=== PATIENT | male | born 1940 | race Caucasian/White ===

== ENCOUNTER → 2017-10-04 | Outpatient (CLI) | payer MEDICARE ==
--- NOTE | 2017-10-05 21:04 | US ---
EXAMINATION TYPE: US kidneys/renal and bladder DATE OF EXAM: 10/04/2017 COMPARISON: NONE CLINICAL HISTORY: R31.9 Hematuria. EXAM MEASUREMENTS: Right Kidney: 10.5 x 5.6 x 5.1 cm Left Kidney: 10.8 x 4.2 x 4.3 cm Right Kidney: multiple kidney stones, largest two measuring 0.9 x 0.4 x 1.1cm, 2.) 0.9 x 0.8 x 0.7cm Left Kidney: cyst measuring 2.8 x 2.7 x 2.6cm, multiple stones noted, largest measuring 0.8 x 0.3 x 0 .5cm Bladder: wnl There is no evidence for hydronephrosis at this point in time. Bilateral kidneys show hyperechoic sha dowing foci suggestive of nephrolithiasis. No suspicious solid or cystic masses are identified. The re is 2.8 cm simple appearing cyst mid pole level left kidney marked by technologist. The urinary familia dder is anechoic. Bilateral ureteral jets are not seen. IMPRESSION: Suspect bilateral nephrolithiasis. No hydronephrosis is seen. Consider correlation/confirmation with abdominal KUB x-ray and/or renal stones CT study.
== END | disposition home or self-care (01) ==
LOC: RADUSWWP 15:20
PROVIDERS: ATTEND Internal Medicine Geriatric Medicine
DX: R31.9 Hematuria, unspecified (principal)
CPT/HCPCS: 76770

== ENCOUNTER → 2017-10-24 | Outpatient (CLI) | payer MEDICARE ==
--- NOTE | 2017-10-24 09:11 | XR ---
EXAMINATION TYPE: XR abdomen 1V DATE OF EXAM: 10/24/2017 HISTORY: Pain Comparison: None.Single KUB is submitted for interpretation. Findings: Right renal calculi: Multiple right-sided renal calculi noted with the largest calculus mid pole santiago uring 1.3 cm. Right ureteral calculi: None Visualized. Left renal calculi: Multiple calculi left kidney with the largest calculus mid pole measuring 1.2 cm . Left ureteral calculi: None Visualized. Pelvic calcifications: Multiple probable phleboliths are seen within the pelvic basin. Bowel gas pattern is unremarkable. No free air. No mass effects. IMPRESSION: 1. Bilateral nephrolithiasis.
== END | disposition home or self-care (01) ==
LOC: RADXRMAIN 08:23
PROVIDERS: ATTEND Urology
DX: N20.0 Calculus of kidney (principal)
CPT/HCPCS: 74018

== ENCOUNTER → 2019-03-16 | Outpatient (CLI) | payer MEDICARE ==
--- NOTE | 2019-03-16 17:17 | CT ---
EXAMINATION TYPE: CT abdomen pelvis wo con DATE OF EXAM: 03/16/2019 COMPARISON: None INDICATION: Hematuria, history of renal stones. DLP: 476.8 mGycm, Automated exposure control for dose reduction was used. CONTRAST: 0 mL of Isovue 300. Study performed without Oral Contrast TECHNIQUE: Axial images were obtained from above the diaphragm to the pubic rami in the axial plane a t 5 mm thick sections. Reconstructed images are reviewed on the computer in the coronal plane. FINDINGS: Limited CT sections are obtained the lung bases. There is some streak opacities in the dependent elham g bases. This could be related to some scarring from emphysematous change which is present. Some atel ectasis within the dependent lung bases could be considered.. Heart size is mildly prominent. CT ABDOMEN: Liver: Normal Spleen: Normal Pancreas: Multiple calcifications are within the pancreas suggesting chronic pancreatitis. Adrenal glands: The adrenal glands are normal. Gallbladder: There may be multiple gallstones in what may be the gallbladder along the margin of the right lobe liver. Kidneys: No masses are evident. No hydronephrosis is present. There is some distention of the right s uperior renal calyx which may be related to the renal calculi. There is a 2.6 cm posterior lateral m id left renal cyst measuring 9 Hounsfield units. Multiple nonobstructing renal stones are present bi laterally. This would include a 0.6 cm calcification at the inferior pole left kidney, mid to inferio r pole left renal 0.5 and 0.8 cm calcifications a 0.95 cm calcification in the mid anterior left kidn ey a 0.3 cm calcification superior pole right kidney is 0.5 cm calcification superior to mid right ki dney large staghorn calculus measuring estimated 1.6 x 1.2 cm with an adjacent 0.7 cm calcification. A cortical calcification measuring 0.6 cm posterior mid right kidney and within the inferior pole azul al 0.5 cm calcification right kidney. Aorta: Vascular calcification is within the aorta. Inferior vena cava: Normal. CT PELVIS: Loops of bowel within the abdomen and pelvis are normal. Fecal debris is through the colon. Multi ple diverticuli are within the sigmoid colon. No obstruction is identified. There is a left inguinal hernia extending into the scrotal sac containing multiple nonobstructed loops of bowel. A smaller rig ht inguinal hernia with mesenteric fat is present. Appendix: Not identified. Urinary bladder: Incompletely distended causing some limitation. Genitourinary structures: Prostate has slight prominence with calcification present. Osseous structures: No suspicious lytic or sclerotic lesions. IMPRESSIONS: 1. Mild fecal retention. 2. Diverticulosis without acute diverticulitis. 3. Suspected cholelithiasis. Correlate with surgical history. 4 multiple bilateral nonobstructing azul al stones. A larger staghorn calculus may be within the right kidney. 5. Chronic pancreatitis with pancreas calcifications. 6. Emphysematous changes and scarring at the lung bases. 7. Mild cardiomegaly
== END | disposition home or self-care (01) ==
LOC: RADCTMAIN 13:09
PROVIDERS: ATTEND Urology
DX: N20.0 Calculus of kidney (principal); K59.00 Constipation, unspecified; K57.90 Diverticulosis of intestine, part unspecified, without perforation or abscess without bleeding; K86.1 Other chronic pancreatitis; K86.89 Other specified diseases of pancreas; Z88.8 Allergy status to other drugs, medicaments and biological substances
CPT/HCPCS: 74176

== ENCOUNTER 2019-05-25 17:27 | Emergency (ER) | payer MEDICARE ==
[2019-05-25 17:42] VITALS: PULSE 71; RESP 18; TEMP 97.8
--- NOTE | 2019-05-25 18:40 | ED ---
General Adult HPI - General Chief complaint: Urogenital Stated complaint: URINE RETENTION Time Seen by Provider: 05/25/19 18:17 Source: patient Mode of arrival: wheelchair Limitations: no limitations - History of Present Illness Initial comments: Patient is 78-year-old male presenting to emergency Department with a chief complaint of can't pee. Patient reports he developed urinary retention about 3- 4 days ago and has not been able to completely empty his bladder. Patient does report dribbling. Patient reports for the past 2 days he has also developed left-sided testicular swelling with no tenderness. Patient does not report any tenderness in the suprapubic region. Patient also reports bladder fullness. Patient denies any erythema in the scrotum or penis. Patient denies any nausea or vomiting. Patient is scheduled to see Dr. Alva tomorrow. Patient denies any fevers or chills. Patient reports about a month ago he was diagnosed with kidney stone and was able to pass them. Otherwise no other complaints. Patient is currently on Flomax. Patient also reports bilateral lower extremity edema due to heart related issues. Patient reports the lower extremity edema has increased due to urinary retention - Related Data Home Medications Medication Instructions Recorded Confirmed Albuterol Sulfate [Proair Hfa] 1 - 2 puff INHALATION RT-Q6H PRN 05/05/19 05/25/19 Atenolol 25 mg PO BID 05/05/19 05/25/19 Atorvastatin [Lipitor] 10 mg PO Q48H 05/05/19 05/25/19 Budesonide/Formoterol Fumarate 2 puff INHALATION RT-BID 05/05/19 05/25/19 [Symbicort 160-4.5 Mcg Inhaler] Calcium Carbonate/Vitamin D3 1 tab PO DAILY 05/05/19 05/25/19 [Calcium 600-Vit D3 400 Caplet] Furosemide [Lasix] 40 mg PO DAILY 05/05/19 05/25/19 Melatonin 5 mg PO HS 05/05/19 05/25/19 Multivitamins, Thera [Multivitamin 1 tab PO DAILY 05/05/19 05/25/19 (formulary)] [place]-3 Fatty Acids/Fish Oil [Fish 1 cap PO DAILY 05/05/19 05/25/19 Oil 1,000 mg Softgel] Pilocarpine HCl 5 mg PO TID 05/05/19 05/25/19 Potassium Chloride [Klor-Con 10] 10 meq PO BID 05/05/19 05/25/19 Tamsulosin [Flomax] 0.4 mg PO DAILY 05/05/19 05/25/19 Ubidecarenone [Co Q-10] 100 mg PO DAILY 05/05/19 05/25/19 Zemaira 1 applic IV Q7D 05/05/19 05/25/19 Zolpidem [Ambien] 10 mg PO HS 05/05/19 05/25/19 cloNIDine HCL [Catapres] 0.3 mg PO BID 05/05/19 05/25/19 sitaGLIPtin PHOS/metFORMIN HCL 1 tab PO BID 05/05/19 05/25/19 [Janumet 50-500 mg Tablet] Spironolactone 25 mg PO DAILY 05/25/19 05/25/19 Allergies Allergy/AdvReac Type Severity Reaction Status Date / Time lisinopril AdvReac "picky Verified 05/25/19 19:13 throat"/Cough nifedipine [From Procardia] AdvReac Cough Verified 05/25/19 19:13 Review of Systems ROS Statement: Those systems with pertinent positive or pertinent negative responses have been documented in the HPI. ROS Other: All systems not noted in ROS Statement are negative. Past Medical History Past Medical History: COPD, Diabetes Mellitus, Hyperlipidemia, Hypertension Additional Past Medical History / Comment(s): lung disorder Alpha 1 antitrypsin deficiancy, uses O2 via NC prn @ 2L, recieves weekly infusions via port, states current kidney stones, leg edema History of Any Multi-Drug Resistant Organisms: MRSA Date of last positivie culture/infection: unsure 5-8 yrs ago MDRO Source:: umbilical incision Past Surgical History: Hernia Repair Additional Past Surgical History / Comment(s): umb. hernia repair, rt cataract, eyelid sx, port a cath rt side Past Anesthesia/Blood Transfusion Reactions: No Reported Reaction Past Psychological History: No Psychological Hx Reported Smoking Status: Former smoker Past Alcohol Use History: Occasional - Past Family History Mother Family Medical History: Cancer Additional Family Medical History / Comment(s): lung Sister(s) Family Medical History: Cancer Additional Family Medical History / Comment(s): 1 sister lung ca, one sister pneumonia General Exam Limitations: no limitations General appearance: alert, in no apparent distress Head exam: Present: atraumatic, normocephalic, normal inspection Eye exam: Present: normal appearance, PERRL, EOMI Pupils: Present: normal accommodation ENT exam: Present: normal exam, normal oropharynx, mucous membranes moist, normal external ear exam Neck exam: Present: normal inspection, full ROM Respiratory exam: Present: normal lung sounds bilaterally Cardiovascular Exam: Present: regular rate, normal rhythm, normal heart sounds GI/Abdominal exam: Present: soft, normal bowel sounds. Absent: distended, tenderness exam: Absent: normal inspection, testicular tenderness, urethral discharge, scrotal swelling (Left-sided testicular swelling), other (No penile discharge) Extremities exam: Present: full ROM. Absent: normal inspection (Bilateral lower extremity edema) Back exam: Present: normal inspection, full ROM Neurological exam: Present: alert, oriented X3 Psychiatric exam: Present: normal affect, normal mood Skin exam: Present: warm, intact, normal color Course Vital Signs 05/25/19 05/25/19 05/25/19 17:39 19:58 21:07 Temperature 97.8 F 97.8 F Pulse Rate 71 71 71 Respiratory 18 18 18 Rate Blood Pressure 147/78 160/90 160/90 O2 Sat by Pulse 98 92 L 92 L Oximetry Medical Decision Making - Medical Decision Making Patient is a 78-year-old male with history of inguinal hernias presenting to emergency Department with a chief complaint of can't urinate. Patient reports he has developed scrotal swelling approximately 2 weeks ago and he is going to be evaluated by a surgeon. Patient reports over the past 3 days he has developed urinary retention. Patient reports dribbling. Patient denies any dysuria or pulse symptoms. Patient does report suprapubic tenderness and bladder fullness. Bladder scan shows 600 mL of fluid. Morgan catheter was placed and was able to drain all the fluid. Patient reports a lot of relief. Scrotal ultrasound is indicative of 2.5 cm epidermal cyst. Right testicular hydrocele also noted. Patient reports he has an appointment with a urologist in the morning. I suspect the urinary retention to be a result of the indirect inguinal hernia. Strict return parameters were thoroughly discussed the patient was understanding and agreeable. Case discussed with physician. - Lab Data Result diagrams: 05/25/19 18:50 05/25/19 18:50 Lab Results 05/25/19 05/25/19 05/25/19 Range/Units 18:50 18:50 19:00 WBC 9.5 (3.8-10.6) k/uL RBC 5.50 (4.30-5.90) m/uL Hgb 16.5 (13.0-17.5) gm/dL Hct 50.0 (39.0-53.0) % MCV 90.8 (80.0-100.0) fL MCH 30.1 (25.0-35.0) pg MCHC 33.1 (31.0-37.0) g/dL RDW 13.1 (11.5-15.5) % Plt Count 186 (150-450) k/uL Neutrophils % 83 % Lymphocytes % 8 % Monocytes % 5 % Eosinophils % 1 % Basophils % 1 % Neutrophils # 7.9 H (1.3-7.7) k/uL Lymphocytes # 0.8 L (1.0-4.8) k/uL Monocytes # 0.5 (0-1.0) k/uL Eosinophils # 0.1 (0-0.7) k/uL Basophils # 0.1 (0-0.2) k/uL Sodium 139 (137-145) mmol/L Potassium 4.9 (3.5-5.1) mmol/L Chloride 101 (98-107) mmol/L Carbon Dioxide 26 (22-30) mmol/L Anion Gap 12 mmol/L BUN 24 H (9-20) mg/dL Creatinine 1.07 (0.66-1.25) mg/dL Est GFR (CKD-EPI)AfAm 78 (>60 ml/min/1.73 sqM) Est GFR (CKD-EPI)NonAf 68 (>60 ml/min/1.73 sqM) Glucose 127 H (74-99) mg/dL Calcium 9.7 (8.4-10.2) mg/dL Total Bilirubin 1.0 (0.2-1.3) mg/dL AST 45 (17-59) U/L ALT 30 (21-72) U/L Alkaline Phosphatase 65 (38-126) U/L NT-Pro-B Natriuret Pep 143 pg/mL Total Protein 8.1 (6.3-8.2) g/dL Albumin 4.4 (3.5-5.0) g/dL Urine Color Urine Appearance (Clear) Urine pH (5.0-8.0) Ur Specific [place] (1.001-1.035) Urine Protein (Negative) Urine Glucose (UA) (Negative) Urine Ketones (Negative) Urine Blood (Negative) Urine Nitrite (Negative) Urine Bilirubin (Negative) Urine Urobilinogen (<2.0) mg/dL Ur Leukocyte Esterase (Negative) Urine RBC (0-5) /hpf Urine WBC (0-5) /hpf Ur Squamous Epith Cells (0-4) /hpf Hyaline Casts (0-2) /lpf Urine Mucus (None) /hpf 05/25/19 Range/Units 20:10 WBC (3.8-10.6) k/uL RBC (4.30-5.90) m/uL Hgb (13.0-17.5) gm/dL Hct (39.0-53.0) % MCV (80.0-100.0) fL MCH (25.0-35.0) pg MCHC (31.0-37.0) g/dL RDW (11.5-15.5) % Plt Count (150-450) k/uL Neutrophils % % Lymphocytes % % Monocytes % % Eosinophils % % Basophils % % Neutrophils # (1.3-7.7) k/uL Lymphocytes # (1.0-4.8) k/uL Monocytes # (0-1.0) k/uL Eosinophils # (0-0.7) k/uL Basophils # (0-0.2) k/uL Sodium (137-145) mmol/L Potassium (3.5-5.1) mmol/L Chloride (98-107) mmol/L Carbon Dioxide (22-30) mmol/L Anion Gap mmol/L BUN (9-20) mg/dL Creatinine (0.66-1.25) mg/dL Est GFR (CKD-EPI)AfAm (>60 ml/min/1.73 sqM) Est GFR (CKD-EPI)NonAf (>60 ml/min/1.73 sqM) Glucose (74-99) mg/dL Calcium (8.4-10.2) mg/dL Total Bilirubin (0.2-1.3) mg/dL AST (17-59) U/L ALT (21-72) U/L Alkaline Phosphatase (38-126) U/L NT-Pro-B Natriuret Pep pg/mL Total Protein (6.3-8.2) g/dL Albumin (3.5-5.0) g/dL Urine Color Yellow Urine Appearance Clear (Clear) Urine pH 6.0 (5.0-8.0) Ur Specific [place] 1.010 (1.001-1.035) Urine Protein Negative (Negative) Urine Glucose (UA) Negative (Negative) Urine Ketones Negative (Negative) Urine Blood Negative (Negative) Urine Nitrite Negative (Negative) Urine Bilirubin Negative (Negative) Urine Urobilinogen <2.0 (<2.0) mg/dL Ur Leukocyte Esterase Small H (Negative) Urine RBC 4 (0-5) /hpf Urine WBC 8 H (0-5) /hpf Ur Squamous Epith Cells <1 (0-4) /hpf Hyaline Casts 6 H (0-2) /lpf Urine Mucus Rare H (None) /hpf Disposition Clinical Impression: Urinary retention, Hernia Disposition: HOME SELF-CARE Condition: Stable Instructions (If sedation given, give patient instructions): Morgan Catheter Placement and Care (ED) Additional Instructions: Please follow up with Dr. Guzman in the morning. Please follow proper care for a Morgan catheter. Please return to emergency department if symptoms worsen. Is patient prescribed a controlled substance at d/c from ED?: No Referrals: Juancarlos Ledesma MD [Primary Care Provider] - 1-2 days Time of Disposition: 20:38
[2019-05-25 19:00] LABS: Basophils # (A) 0.1 k/uL (0-0.2); Basophils % (A) 1 %; Eosinophils # (A) 0.1 k/uL (0-0.7); Eosinophils % (A) 1 %; HGB 16.5 gm/dL (13.0-17.5); Lymphocytes # (A) 0.8 k/uL (1.0-4.8); Lymphocytes % (A) 8 %; MCH 30.1 pg (25.0-35.0); MCHC 33.1 g/dL (31.0-37.0); MCV 90.8 fL (80.0-100.0); Mean Platelet Volume 6.7; Monocytes # (A) 0.5 k/uL (0-1.0); Monocytes % (A) 5 %; Neutrophils # (A) 7.9 k/uL (1.3-7.7); Neutrophils % (A) 83 %; Platelet Count 186 k/uL (150-450); RDW 13.1 % (11.5-15.5); WBC 9.5 k/uL (3.8-10.6)
[2019-05-25 19:07] LABS: Albumin 4.4 g/dL (3.5-5.0); Calcium 9.7 mg/dL (8.4-10.2); Potassium 4.9 mmol/L (3.5-5.1); Total Protein 8.1 g/dL (6.3-8.2)
--- NOTE | 2019-05-25 19:55 | US ---
EXAMINATION TYPE: US scrotum with doppler. Grayscale and color Doppler Duplex imaging performed of t demetrius scrotum. DATE OF EXAM: 05/25/2019 COMPARISON: NONE CLINICAL HISTORY: Testicular swelling. Left testicular swelling x 1 week. No injury. Hx hernia. EXAM MEASUREMENTS: TESTICLES: Right Testicle: 4.5 x 2.7 x 3.2 cm Left Testicle: 4.6 x 3.8 x 3.1 cm EPIDIDYMIS HEAD: Right Epididymis: 3.1 x 2.5 x 2.0 cm Left Epididymis: Not well seen. 1.3 x 1.8 x 0.5 cm Mixed, mostly anechoic area seen right epididymis measurin.1 x 2.6 x 2.0 cm. Hypoechoic area seen left epididymis measurin.5 x 0.7 x 0.2 cm. Doppler performed to assess for testicular vascularity; good bilateral color flow and waveforms are s een. There is no evidence of testicular torsion. Presence of hydroceles: Small anechoic area seen adjacent to right testicle measurin.2 x 0.8 x 0 .5 cm. Presence of varicoceles: not seen Scrotum appears very swollen. Movement seen in areas surrounding testicles. Patient has a history of a hernia. IMPRESSION: 2.5 cm right-sided epididymal cyst. No evidence of testicular mass or torsion. Small righ t-sided hydrocele.
[2019-05-25 20:02] VITALS: BP 160/90
[2019-05-25 20:17] LABS: Appearance,Urine Clear (Clear); Bilirubin,Urine Negative (Negative); Blood,Urine Negative (Negative); Color,Urine Yellow; Glucose,Urine (UA) Negative (Negative); Hyaline Casts,Urine 6 /lpf (0-2); Ketones,Urine Negative (Negative); Leukocyte Esterase,Urine Small (Negative); Mucus,Urine Rare /hpf; Nitrite,Urine Negative (Negative); Protein,Urine Negative (Negative); RBC,Urine 4 /hpf (0-5); Squamous Epithelial Cell,Urine <1 /hpf (0-4); Urobilinogen,Urine <2.0 mg/dL (<2.0)
== END 2019-05-25 21:09 | disposition home or self-care (01) ==
LOC: EC 17:27
DX: K40.90 Unilateral inguinal hernia, without obstruction or gangrene, not specified as recurrent (principal); L72.0 Epidermal cyst; N43.3 Hydrocele, unspecified; J44.9 Chronic obstructive pulmonary disease, unspecified; E11.9 Type 2 diabetes mellitus without complications; E78.5 Hyperlipidemia, unspecified; I10 Essential (primary) hypertension; Z87.891 Personal history of nicotine dependence; Z79.899 Other long term (current) drug therapy; Z88.8 Allergy status to other drugs, medicaments and biological substances; Z86.14 Personal history of Methicillin resistant Staphylococcus aureus infection; Z98.890 Other specified postprocedural states; Z98.41 Cataract extraction status, right eye; Z99.81 Dependence on supplemental oxygen
CPT/HCPCS: 36415; 51702; 51798; 76870; 80053; 81001; 83880; 85025; 93975; 99284

== ENCOUNTER → 2019-05-27 | Outpatient (CLI) | payer MEDICARE | END | disposition home or self-care (01) | LOC: CPPFTMAIN 10:37 | PROVIDERS: ATTEND Internal Medicine Critical Care Medicine | DX: J44.9 Chronic obstructive pulmonary disease, unspecified (principal); J98.8 Other specified respiratory disorders | CPT/HCPCS: 94060; 94726; 94729 ==

== ENCOUNTER 2019-07-01 07:53 | Day surgery (SDC) | payer MEDICARE ==
[~2019-07-01 07:53] MED LIST: DEXAMETHASONE SOD PHOSPHATE 10 MG/ML 1 ML VIAL IV ONE; HEPARIN SODIUM,PORCINE 5,000 UNIT/ML 1 ML VIAL SQ ONE; HYDROmorphone 0.5 MG/0.5 ML SYRINGE IVP PRN; LIDOCAINE 1% 20 ML VIAL (10MG/ML) FOR IV START INTRADERMA PRN; MIDAZOLAM 2 MG/2 ML VIAL IV PRN; ONDANSETRON 4 MG/2 ML VIAL IVP ONE; SCOPOLAMINE 1.5MG/72HR PATCH TRANSDERM ONE
--- NOTE | 2019-07-01 09:11 | P.GSHP ---
History of Present Illness H&P Date: 07/01/19 Chief Complaint: Left inguinal hernia This a 78-year-old male with a large incarcerated left internal hernia. Patient rents today for open repair. Patient will see spinal anesthetic due to his comorbidities. Past Medical History Past Medical History: COPD, Diabetes Mellitus, Hyperlipidemia, Hypertension Additional Past Medical History / Comment(s): EC VISIT ON 05/25/19 FOR URINARY RETENTION, HAS HAD URINARY CATHETER SINCE. Lung disorder: Alpha 1 antitrypsin deficiancy, uses O2 via NC prn @ 2L, recieves weekly infusions via port BY VISITING NURSE. Leg edema. HX: RENAL STONES History of Any Multi-Drug Resistant Organisms: MRSA Date of last positivie culture/infection: unsure 5-8 yrs ago MDRO Source:: umbilical incision Past Surgical History: Hernia Repair Additional Past Surgical History / Comment(s): BILATERAL CATARACTS. Umb. hernia repair. Eyelid sx. PORT-A-CATH. Past Anesthesia/Blood Transfusion Reactions: No Reported Reaction Additional Past Anesthesia/Blood Transfusion Reaction / Comment(s): NO GENERAL ANESTHESIA DUE TO LUNG DISORDER. Past Psychological History: No Psychological Hx Reported Smoking Status: Former smoker Past Alcohol Use History: Occasional Additional Past Alcohol Use History / Comment(s): smoked for a few years in his 20's, 1 pack per week Past Drug Use History: None Reported - Past Family History Mother Family Medical History: Cancer Additional Family Medical History / Comment(s): lung Sister(s) Family Medical History: Cancer Additional Family Medical History / Comment(s): 1 sister lung ca, one sister pneumonia Medications and Allergies Home Medications Medication Instructions Recorded Confirmed Type Albuterol Sulfate [Proair Hfa] 1 - 2 puff INHALATION RT-Q6H PRN 05/05/19 07/01/19 History Atenolol 25 mg PO BID 05/05/19 07/01/19 History Atorvastatin [Lipitor] 10 mg PO Q48H 05/05/19 07/01/19 History Budesonide/Formoterol Fumarate 2 puff INHALATION RT-BID 05/05/19 07/01/19 History [Symbicort 160-4.5 Mcg Inhaler] Calcium Carbonate/Vitamin D3 1 tab PO DAILY 05/05/19 07/01/19 History [Calcium 600-Vit D3 400 Caplet] Furosemide [Lasix] 40 mg PO DAILY 05/05/19 07/01/19 History Melatonin 5 mg PO HS 05/05/19 07/01/19 History Multivitamins, Thera [Multivitamin 1 tab PO DAILY 05/05/19 07/01/19 History (formulary)] [place]-3 Fatty Acids/Fish Oil [Fish 1 cap PO DAILY 05/05/19 07/01/19 History Oil 1,000 mg Softgel] Pilocarpine HCl 5 mg PO TID 05/05/19 07/01/19 History Potassium Chloride [Klor-Con 10] 10 meq PO BID 05/05/19 07/01/19 History Tamsulosin [Flomax] 0.4 mg PO BID 05/05/19 07/01/19 History Ubidecarenone [Co Q-10] 100 mg PO DAILY 05/05/19 07/01/19 History Zemaira 1 applic IV TU 05/05/19 07/01/19 History Zolpidem [Ambien] 10 mg PO HS 05/05/19 07/01/19 History cloNIDine HCL [Catapres] 0.3 mg PO BID 05/05/19 07/01/19 History sitaGLIPtin PHOS/metFORMIN HCL 1 tab PO BID 05/05/19 07/01/19 History [Janumet 50-500 mg Tablet] Spironolactone 5 mg PO TID PRN 05/25/19 07/01/19 History Furosemide [Lasix] 20 mg PO 1500 06/29/19 07/01/19 History Allergies Allergy/AdvReac Type Severity Reaction Status Date / Time lisinopril AdvReac "picky Verified 07/01/19 08:35 throat"/Cough nifedipine [From Procardia] AdvReac Cough Verified 07/01/19 08:35 Surgical - Exam Vital Signs Temp Pulse Resp BP Pulse Ox 97.6 F 73 20 138/91 90 L 07/01/19 08:31 07/01/19 08:31 07/01/19 08:31 07/01/19 08:31 07/01/19 08:31 - General well developed, well nourished, no distress - Eyes PERRL - ENT normal pinna - Neck no masses - Respiratory normal expansion - Cardiovascular Rhythm: regular - Abdomen Abdomen: soft, non tender Hernia: inguinal (Large incarcerated left inguinal hernia extending in the scrotum) Assessment and Plan Assessment: Large left incarcerated inguinal hernia. We'll perform open repair.
[2019-07-01 09:17] LABS: Glucose,Whole Blood 141 mg/dL (75-99)
[2019-07-01] MEDS: LACTATED RINGERS 1,000 ML IV SCH (09:21)
[2019-07-01] MEDS ORDERED: MIDAZOLAM 2 MG/2 ML VIAL ONE (09:22)
[2019-07-01] MEDS ORDERED: fentaNYL (PF) 50 MCG/ML 2 ML AMP ONE (09:22)
[2019-07-01] MEDS ORDERED: BUPIVACAINE (PF) 0.25% 30 ML VIAL SQ ONE (10:25)
[2019-07-01] MEDS ORDERED: LACTATED RINGERS 1,000 ML IV ONE (10:40)
[2019-07-01] MEDS ORDERED: ONDANSETRON 4 MG/2 ML VIAL IVP PRN (10:40)
[2019-07-01] MEDS ORDERED: ACETAMINOPHEN TAB 325 MG TAB PO PRN (10:40)
[2019-07-01] MEDS ORDERED: HYDROmorphone 0.5 MG/0.5 ML SYRINGE IVP PRN (10:40)
[2019-07-01] MEDS ORDERED: NALOXONE 0.4 MG/ML 1 ML VIAL IV PRN (10:40)
--- NOTE | 2019-07-01 10:40 | P.OP ---
Date of Procedure: 07/01/19 Preoperative Diagnosis: Incarcerated left inguinal hernia Postoperative Diagnosis: Incarcerated left femoral hernia Procedure(s) Performed: (Repair of left inguinal hernia Left orchiectomy Anesthesia: JAIRO Surgeon: Efrem Francis Estimated Blood Loss (ml): 5 Pathology: other (Left testicle cord and hernia sac) Condition: stable Disposition: PACU Description of Procedure: The patient's placed on the operative table in supine position. He received spinal anesthesia and sedation. His groin was prepped and draped usual sterile fashion. A standard left inguinal hernia incision was made in the left groin and then using the cautery the subcutaneous tissues were divided. The fascia external oblique was exposed. The patient had a very large left inguinal hernia. There is incarcerated bowel or omentum within the hernia sac. The testicle was brought up in the wound. The hernia sac was dissected off of the cord structures. The bowel omentum was placed back in to the pleural cavity. Due to the large size of the hernia is high perform a orchiectomy. The cord structures and hernia sac within clamped with a Dinorah clamp and the hernia sac and cord were cut using metastases months scissors. The cord suture ligated with 0 Vicryl ties the hernia sac was then oversewn with 0 Vicryl suture. The hernia defect was then closed using 0 Ethibond suture. WAS USED TO BRING THE TRANSVERSALIS DOWN TO CHERRI'S LIGAMENT. THE FASCIA EXTERNAL OBLIQUE WAS CLOSED with 0 Vicryl. Frank's fascia closed with 2-0 Vicryl. Skin was closed interrupted 3-0 Monocryl suture. Dermabond was applied. Patient top she will was sent to recovery in stable condition.
[2019-07-01] MEDS ORDERED: IPRATROPIUM-ALBUTEROL 3 ML NEB INHALATION PRN (14:15)
--- NOTE | 2019-07-01 15:36 | P.CNPUL ---
History of Present Illness Consult date: 07/01/19 Reason for consult: COPD Chief complaint: status post left inguinal hernia repair, known history of COPD History of present illness: this is a 78-year-old white male with history of COPD,known to have history of alpha-1 antitrypsin deficiency, O2 dependent, on Zemaira replacement therapy for his underlying alpha-1 antitrypsin deficiency.his diagnosis of alpha-1 antitrypsin was made in 2016, and he normally sees Dr. Abdul on a regular basis.maintained on bronchodilators in the form of pro-air, Spiriva, and Symbicort. Patient is compliant with his medications, he had recent evaluation in our office, and he was cleared for surgical repair of incarcerated left inguinal hernia. Patient had his surgery . Performed uneventfully, he was found to have incarcerated left inguinal hernia. Postoperatively patient was admitted to the regular medical floor, and we were asked to see him on consultation for his underlying COPD. Patient is presently asymptomatic, back on his oxygen, back on his bronchodilators and he seems to be relatively asymptomatic from the pulmonary perspective. Patient is known to have history of other medical problems including chronic hypoxic respiratory failure, nephrolithiasis, diabetes, hypercholesterolemia,and his surgical clearance was done by Dr. Zhang recently in the office. Review of Systems Constitutional-Negative Eyes-Negative ENMT-Negative Cardiovascular-Negative Respiratory-shortness of breath on exertion. Gastrointestinal-Negative Genitourinary-Negative Musculoskeletal-Negative Skin-Negative Neurologic-Negative Endocrine-Negative Psychiatric-Negative Hematologic/Lymphatic-Negative Allergic/Immumologic-Negative Past Medical History Past Medical History: COPD, Diabetes Mellitus, Hyperlipidemia, Hypertension Additional Past Medical History / Comment(s): EC VISIT ON 05/25/19 FOR URINARY RETENTION, HAS HAD URINARY CATHETER SINCE. Lung disorder: Alpha 1 antitrypsin deficiancy, uses O2 via NC prn @ 2L, recieves weekly infusions via port BY VISITING NURSE. Leg edema. HX: RENAL STONES History of Any Multi-Drug Resistant Organisms: MRSA Date of last positivie culture/infection: unsure 5-8 yrs ago MDRO Source:: umbilical incision Past Surgical History: Hernia Repair Additional Past Surgical History / Comment(s): BILATERAL CATARACTS. Umb. hernia repair. Eyelid sx. PORT-A-CATH. Past Anesthesia/Blood Transfusion Reactions: No Reported Reaction Additional Past Anesthesia/Blood Transfusion Reaction / Comment(s): NO GENERAL ANESTHESIA DUE TO LUNG DISORDER. Past Psychological History: No Psychological Hx Reported Smoking Status: Former smoker Past Alcohol Use History: Occasional Additional Past Alcohol Use History / Comment(s): smoked for a few years in his 20's, 1 pack per week Past Drug Use History: None Reported - Past Family History Mother Family Medical History: Cancer Additional Family Medical History / Comment(s): lung Sister(s) Family Medical History: Cancer Additional Family Medical History / Comment(s): 1 sister lung ca, one sister pneumonia Medications and Allergies Home Medications Medication Instructions Recorded Confirmed Type Albuterol Sulfate [Proair Hfa] 1 - 2 puff INHALATION RT-Q6H PRN 05/05/19 07/01/19 History Atenolol 25 mg PO BID 05/05/19 07/01/19 History Atorvastatin [Lipitor] 10 mg PO Q48H 05/05/19 07/01/19 History Budesonide/Formoterol Fumarate 2 puff INHALATION RT-BID 05/05/19 07/01/19 History [Symbicort 160-4.5 Mcg Inhaler] Calcium Carbonate/Vitamin D3 1 tab PO DAILY 05/05/19 07/01/19 History [Calcium 600-Vit D3 400 Caplet] Furosemide [Lasix] 40 mg PO DAILY 05/05/19 07/01/19 History Melatonin 5 mg PO HS 05/05/19 07/01/19 History Multivitamins, Thera [Multivitamin 1 tab PO DAILY 05/05/19 07/01/19 History (formulary)] Pala-3 Fatty Acids/Fish Oil [Fish 1 cap PO DAILY 05/05/19 07/01/19 History Oil 1,000 mg Softgel] Pilocarpine HCl 5 mg PO TID 05/05/19 07/01/19 History Potassium Chloride [Klor-Con 10] 10 meq PO BID 05/05/19 07/01/19 History Tamsulosin [Flomax] 0.4 mg PO BID 05/05/19 07/01/19 History Ubidecarenone [Co Q-10] 100 mg PO DAILY 05/05/19 07/01/19 History Zemaira 1 applic IV TU 05/05/19 07/01/19 History Zolpidem [Ambien] 10 mg PO HS 05/05/19 07/01/19 History cloNIDine HCL [Catapres] 0.3 mg PO BID 05/05/19 07/01/19 History sitaGLIPtin PHOS/metFORMIN HCL 1 tab PO BID 05/05/19 07/01/19 History [Janumet 50-500 mg Tablet] Spironolactone 5 mg PO TID PRN 05/25/19 07/01/19 History Furosemide [Lasix] 20 mg PO 1500 06/29/19 07/01/19 History Allergies Allergy/AdvReac Type Severity Reaction Status Date / Time lisinopril AdvReac "picky Verified 07/01/19 08:35 throat"/Cough nifedipine [From Procardia] AdvReac Cough Verified 07/01/19 08:35 Physical Exam Vitals: Vital Signs Temp Pulse Pulse Resp BP BP Pulse Ox 07/01/19 14:56 97.9 F 61 18 117/73 91 L 07/01/19 13:30 62 16 126/68 96 07/01/19 13:00 66 16 125/67 96 07/01/19 12:30 61 16 136/74 97 07/01/19 12:00 58 L 16 138/74 96 07/01/19 11:30 52 L 16 130/59 97 07/01/19 11:17 55 L 16 112/62 97 07/01/19 10:57 58 L 16 109/62 94 L 07/01/19 10:42 96.8 F L 57 L 16 102/59 97 07/01/19 08:31 97.6 F 73 20 138/91 90 L Intake and Output 07/01/19 07/01/19 07/01/19 06:59 14:59 22:59 Intake Total 750 Output Total 205 Balance 545 Intake: IV 750 Output: Urine 200 Estimated Blood Loss 5 Other: Weight 72.575 kg Physical Exam: Revealed a 78-year-old white male, on 2 L nasal cannula, in no distress. Head: Atraumatic, normocephalic. HEENT:[Neck is supple.] [No neck masses.] [No thyromegaly.] [No JVD.] Chest: symmetrical chest expansion, decreased breath sounds at the bases. No rhonchi and no wheezes.] Cardiac Exam: [Normal S1 and S2, no S3 gallop, no murmur.] Abdomen: [Soft, nontender, no megaly, no rebound, no guarding, normal bowel sounds.]left inguinal surgical scar is noted clean and dry. Extremities: [No clubbing, trace of bipedal edema no cyanosis.] Neurological Exam: [No focal neurologic deficit.]alert and oriented 3. Psychiatric: Normal mood, affect and normal mental status examination. Lymphatics: No lymphadenopathy. Skin: No rashes. Results - Laboratory Findings Abnormal lab findings: Abnormal Labs 07/01/19 09:16 POC Glucose (mg/dL) 141 H Assessment and Plan Assessment: impression: 1 status post left inguinal hernia repair postoperative day #0. 2 history of severe COPD/alpha-1 antitrypsin deficiency, presently stable and the patient was placed back on his usual bronchodilators. 3 history of chronic hypoxic respiratory failure secondary to COPD and alpha-1 antitrypsin deficiency. 4 benign essential hypertension 5 history of nephrolithiasis 6 type 2 diabetes 7 hypercholesterolemia. Recommendation: Continue incentive spirometry Continue bronchodilators as ordered Early ambulation Resume home meds we'll continue to follow. Bronchodilators orders placed on the chart. Time with Patient: Greater than 30
--- NOTE | 2019-07-01 16:08 | P.CONS ---
History of Present Illness - Reason for Consult Consult date: 07/01/19 Medical management Requesting physician: Efrem Francis - Chief Complaint Incarcerated left inguinal hernia repair. - History of Present Illness This is 78 her old male one of Dr. Ledesma with a previous medical history significant for chronic respiratory failure due to COPD as well as alpha 1 and Tetracyn deficiency currently on replacement therapy in the form of Zemeira has been following with Dr. Abdul and regular basis and he was cleared prior to the surgical intervention, hypertension and hypertensive cardio vascular disease, hyperlipidemia, diabetes mellitus type 2, nephrolithiasis, patient underwent left incarcerated inguinal hernia without any complications and I was asked to see the patient for medical management. Review of Systems Constitutional: Denies anorexia, Denies chills, Denies lethargy, Denies malaise, Denies weakness Eyes: denies blurred vision, denies bulging eye, denies decreased vision, denies diplopia Ears: deny: decreased hearing Ears, nose, mouth and throat: Denies dysphagia, Denies neck lump Cardiovascular: Reports decreased exercise tolerance, Reports dyspnea on exertion, Denies chest pain, Denies lightheadedness, Denies rapid heart beat, Denies shortness of breath, Denies syncope Respiratory: Reports cough, Reports home oxygen, Denies congestion, Denies respiratory infections, Denies sleep apnea, Denies snoring, Denies wheezing Gastrointestinal: Denies abdominal pain, Denies bloating, Denies BRBPR, Denies early satiety, Denies heartburn, Denies melena, Denies nausea, Denies vomiting Genitourinary: Denies dysuria, Denies nocturia Musculoskeletal: Denies myalgias Musculoskeletal: absent: ankle pain, ankle stiffness, ankle swelling, elbow pain, elbow stiffness, elbow swelling, foot pain, foot stiffness, foot swelling, hand pain, hand stiffness, hand swelling, hip pain, hip stiffness, hip swelling, knee pain, knee stiffness, knee swelling, shoulder pain, shoulder stiffness, shoulder swelling, wrist pain, wrist stiffness, wrist swelling Integumentary: Denies pruritus, Denies rash Neurological: Denies numbness, Denies weakness Psychiatric: Denies anxiety, Denies depression Endocrine: Denies fatigue, Denies weight change Past Medical History Past Medical History: COPD, Diabetes Mellitus, Hyperlipidemia, Hypertension Additional Past Medical History / Comment(s): EC VISIT ON 05/25/19 FOR URINARY RETENTION, HAS HAD URINARY CATHETER SINCE. Lung disorder: Alpha 1 antitrypsin deficiancy, uses O2 via NC prn @ 2L, recieves weekly infusions via port BY VISITING NURSE. Leg edema. HX: RENAL STONES History of Any Multi-Drug Resistant Organisms: MRSA Year Discovered:: unsure 5-8 yrs ago MDRO Source:: umbilical incision Past Surgical History: Hernia Repair Additional Past Surgical History / Comment(s): BILATERAL CATARACTS. Umb. hernia repair. Eyelid sx. PORT-A-CATH. Past Anesthesia/Blood Transfusion Reactions: No Reported Reaction Additional Past Anesthesia/Blood Transfusion Reaction / Comm: NO GENERAL ANESTHESIA DUE TO LUNG DISORDER. Past Psychological History: No Psychological Hx Reported Smoking Status: Former smoker Past Alcohol Use History: Occasional Additional Past Alcohol Use History / Comment(s): smoked for a few years in his 20's, 1 pack per week Past Drug Use History: None Reported - Past Family History Mother Family Medical History: Cancer (Mother at age of 65 from lung cancer.) Additional Family Medical History / Comment(s): lung Sister(s) Family Medical History: Cancer (Patient had 2 sisters an older sister who had lung cancer and possible alpha-1 antitrypsin deficiency the other one from pneumonia.) Additional Family Medical History / Comment(s): 1 sister lung ca, one sister pneumonia Father Family Medical History: No Reported History (Father at age of 85 from old age.) Additional Family Medical History / Comment(s): Patient has no kids. Only step kids Medications and Allergies Home Medications Medication Instructions Recorded Confirmed Type Albuterol Sulfate [Proair Hfa] 1 - 2 puff INHALATION RT-Q6H PRN 05/05/19 07/01/19 History Atenolol 25 mg PO BID 05/05/19 07/01/19 History Atorvastatin [Lipitor] 10 mg PO Q48H 05/05/19 07/01/19 History Budesonide/Formoterol Fumarate 2 puff INHALATION RT-BID 05/05/19 07/01/19 History [Symbicort 160-4.5 Mcg Inhaler] Calcium Carbonate/Vitamin D3 1 tab PO DAILY 05/05/19 07/01/19 History [Calcium 600-Vit D3 400 Caplet] Furosemide [Lasix] 40 mg PO DAILY 05/05/19 07/01/19 History Melatonin 5 mg PO HS 05/05/19 07/01/19 History Multivitamins, Thera [Multivitamin 1 tab PO DAILY 05/05/19 07/01/19 History (formulary)] Metaline-3 Fatty Acids/Fish Oil [Fish 1 cap PO DAILY 05/05/19 07/01/19 History Oil 1,000 mg Softgel] Pilocarpine HCl 5 mg PO TID 05/05/19 07/01/19 History Potassium Chloride [Klor-Con 10] 10 meq PO BID 05/05/19 07/01/19 History Tamsulosin [Flomax] 0.4 mg PO BID 05/05/19 07/01/19 History Ubidecarenone [Co Q-10] 100 mg PO DAILY 05/05/19 07/01/19 History Zemaira 1 applic IV TU 05/05/19 07/01/19 History Zolpidem [Ambien] 10 mg PO HS 05/05/19 07/01/19 History cloNIDine HCL [Catapres] 0.3 mg PO BID 05/05/19 07/01/19 History sitaGLIPtin PHOS/metFORMIN HCL 1 tab PO BID 05/05/19 07/01/19 History [Janumet 50-500 mg Tablet] Spironolactone 5 mg PO TID PRN 05/25/19 07/01/19 History Furosemide [Lasix] 20 mg PO 1500 06/29/19 07/01/19 History Allergies Allergy/AdvReac Type Severity Reaction Status Date / Time lisinopril AdvReac "picky Verified 07/01/19 08:35 throat"/Cough nifedipine [From Procardia] AdvReac Cough Verified 07/01/19 08:35 Physical Exam Vitals: Vital Signs Temp Pulse Pulse Resp BP BP Pulse Ox 07/01/19 14:56 97.9 F 61 18 117/73 91 L 07/01/19 13:30 62 16 126/68 96 07/01/19 13:00 66 16 125/67 96 07/01/19 12:30 61 16 136/74 97 07/01/19 12:00 58 L 16 138/74 96 07/01/19 11:30 52 L 16 130/59 97 07/01/19 11:17 55 L 16 112/62 97 07/01/19 10:57 58 L 16 109/62 94 L 07/01/19 10:42 96.8 F L 57 L 16 102/59 97 07/01/19 08:31 97.6 F 73 20 138/91 90 L Intake and Output 07/01/19 07/01/19 07/01/19 06:59 14:59 22:59 Intake Total 750 Output Total 205 Balance 545 Intake: IV 750 Output: Urine 200 Estimated Blood Loss 5 Other: Weight 72.575 kg - Constitutional General appearance: average body habitus, no acute distress - EENT Eyes: anicteric sclerae, EOMI, PERRLA, no ptosis, no scleral icterus, normal appearance ENT: hearing grossly normal, NA/AT, normal oropharynx, no thrush Ears: bilateral: normal - Neck Neck: no lymphadenopathy, normal ROM, no rigidity, no stridor, no thyromegaly Carotids: bilateral: upstroke normal Thyroid: bilateral: normal size - Respiratory Respiratory: bilateral: diminished, negative: dullness, rales, rhonchi, wheezing, prolonged expiration - Cardiovascular Rhythm: regular Heart sounds: normal: S1, S2 Abnormal Heart Sounds: systolic murmur, no S3 Gallop, no S4 Gallop - Gastrointestinal General gastrointestinal: decreased bowel sounds, soft, no splenomegaly, tenderness, no umbilical hernia, no ventral hernia - Integumentary Integumentary: normal, normal turgor - Neurologic Neurologic: CNII-XII intact - Musculoskeletal Musculoskeletal: generalized weakness, strength equal bilaterally - Psychiatric Psychiatric: A&O x's 3, appropriate affect, intact judgment & insight Results Labs: Abnormal Lab Results - Last 24 Hours (Table) 07/01/19 Range/Units 09:16 POC Glucose (mg/dL) 141 H (75-99) mg/dL Assessment and Plan Assessment: Assessment and plan: 1. Post operative day 0 status post left inguinal hernia repair. Patient was instructed to use the incentive spirometer to reduce the incidence of atelectasis and healthcare associated pneumonia, he was already started on his bronchodilators after he was seen by primary medicine, and his oxygen, monitor the patient very closely, early ambulation. 2. Chronic respiratory failure due to COPD/alpha-1 antitrypsin deficiency. We will maintain the patient on oxygen 2 L nasal cannula, DuoNeb 3 mL nebulization 4 times every day, incentive spirometer, Symbicort 160/4.5 g 2 puffs inhalations twice every day. 3. Hypertension and hypertensive cardiovascular disease. Continue atenolol 25 mg orally twice every day. 4. Hyperlipidemia. Continue patient on Lipitor 10 mg orally daily. 5. Diabetes mellitus type 2. Continue patient on Janumet 50/500 one tablet orally twice every day, blood glucose level before each meal and bedtime. 6. Urinary retention. Patient did have a Morgan catheter. Continue Flomax 0.4 g orally once every day. 7. History of nephrolithiasis. Stable. 8. DVT prophylaxis. Heparin 5000 units subcutaneously every 8 hours. 9. Dry mouth. Continue pilocarpine 5 mg orally 3 times every day. 10. Thank you for the consult we will follow the patient with you.
[2019-07-01] MEDS: HYDROcodone/APAP 5-325MG 1 EACH TAB PO PRN (17:18)
[2019-07-01] MEDS: HEPARIN SODIUM,PORCINE 5,000 UNIT/ML 1 ML VIAL SQ SCH (17:19)
[2019-07-01] MEDS: SYMBICORT 160-4.5 MCG INHALER INHALATION SCH (19:55)
[2019-07-01 20:07] LABS: Glucose,Whole Blood 269 mg/dL (75-99)
[2019-07-01] MEDS: ATENOLOL 25 MG TAB PO SCH (20:55)
[2019-07-01] MEDS: metFORMIN 500 MG TAB PO SCH (20:55)
[2019-07-01] MEDS: cloNIDine HCL 0.1 MG TAB PO SCH (20:55)
[2019-07-01] MEDS: TAMSULOSIN 0.4 MG CAP.ER.24H PO SCH (20:55)
[2019-07-01] MEDS: DOCUSATE 100 MG CAP PO SCH (20:55)
[2019-07-01] MEDS ORDERED: MELATONIN 5 MG TABLET PO SCH (21:00)
[2019-07-01] MEDS ORDERED: ZOLPIDEM 10 MG TAB PO SCH (21:00)
[2019-07-01] MEDS: PILOCARPINE 5 MG TAB PO SCH (21:25)
[2019-07-02] MEDS: HEPARIN SODIUM,PORCINE 5,000 UNIT/ML 1 ML VIAL SQ SCH ×2 (00:26→08:17)
[2019-07-02] MEDS: LACTATED RINGERS 1,000 ML IV SCH (04:32)
[2019-07-02] MEDS: HYDROcodone/APAP 5-325MG 1 EACH TAB PO PRN ×2 (05:57→12:17)
[2019-07-02 06:53] LABS: Glucose,Whole Blood 137 mg/dL (75-99)
[2019-07-02] MEDS: SYMBICORT 160-4.5 MCG INHALER INHALATION SCH (07:45)
[2019-07-02 08:05] LABS: Basophils % (A) 1 %; Eosinophils % (A) 0 %; HCT 45.5 % (39.0-53.0); HGB 14.9 gm/dL (13.0-17.5); Lymphocytes # (A) 0.7 k/uL (1.0-4.8); Lymphocytes % (A) 9 %; MCH 30.5 pg (25.0-35.0); MCHC 32.8 g/dL (31.0-37.0); Mean Platelet Volume 6.4; Monocytes # (A) 0.6 k/uL (0-1.0); Monocytes % (A) 7 %; Neutrophils # (A) 6.9 k/uL (1.3-7.7); Neutrophils % (A) 82 %; Platelet Count 192 k/uL (150-450); RBC 4.89 m/uL (4.30-5.90); RDW 12.7 % (11.5-15.5); WBC 8.4 k/uL (3.8-10.6)
[2019-07-02] MEDS: DOCUSATE 100 MG CAP PO SCH (08:17)
[2019-07-02] MEDS: ATENOLOL 25 MG TAB PO SCH (08:17)
[2019-07-02] MEDS: cloNIDine HCL 0.1 MG TAB PO SCH (08:17)
[2019-07-02] MEDS: metFORMIN 500 MG TAB PO SCH (08:17)
[2019-07-02] MEDS: PILOCARPINE 5 MG TAB PO SCH (08:17)
[2019-07-02] MEDS: TAMSULOSIN 0.4 MG CAP.ER.24H PO SCH (08:17)
[2019-07-02 08:25] LABS: Potassium 4.6 mmol/L (3.5-5.1)
[2019-07-02] MEDS ORDERED: MULTIVITAMINS, THERA 1 EACH TAB PO SCH (09:00)
[2019-07-02] MEDS ORDERED: LINAGLIPTIN 5 MG TABLET PO SCH (09:00)
[2019-07-02] MEDS ORDERED: NON FORMULARY DRUG (Ubidecarenone [Co Q-10] 100 MG) PO SCH (09:00)
[2019-07-02] MEDS ORDERED: NON FORMULARY DRUG (Omega-3 Fatty Acids/Fish Oil [Fish Oil 1,000 Mg Softgel] 1 CAP) PO SCH (09:00)
[2019-07-02 10:02] VITALS: BP 103/63; PULSE 54; RESP 15; TEMP 95.8
--- NOTE | 2019-07-02 11:10 | P.PN ---
Subjective Progress Note Date: 07/02/19 Principal diagnosis: Status post left inguinal hernia repair, known history of COPD On 07/02/2019 patient seen in follow-up on medical surgical floor. Awake and alert, oriented 3, no acute distress, denies any difficulty breathing, no cough or congestion, he is on room air with pulse ox of 95%, is a left inguinal hernia repair site incision is clean dry and intact, his pain is reasonably controlled, hemodynamically stable, afebrile, today's labs have been reviewed, CBC is unremarkable, BMP showed CO2 31, BUN of 26 and creatinine 0.99. Lung sounds reveal a few scattered rales, no rhonchi, no wheezing. Patient is tolerating oral diet, no nausea, vomiting and diarrhea. He has gotten up to the bathroom tolerated activity well, anticipate discharge home today. Objective - Vital Signs Vital signs: Vital Signs Temp 95.8 F L 07/02/19 09:58 Pulse 54 L 07/02/19 09:58 Resp 15 07/02/19 09:58 BP 103/63 07/02/19 09:58 Pulse Ox 95 07/02/19 09:58 Intake & Output 07/01/19 07/02/19 07/02/19 18:59 06:59 18:59 Intake Total 930 Output Total 205 675 800 Balance 725 -675 -800 Weight 72.575 kg Intake: IV 750 Oral 180 Output: Urine 200 675 800 Estimated Blood Loss 5 Other: Voiding Method Indwelling Catheter Indwelling Catheter Indwelling Catheter - Exam GENERAL EXAM: Alert, active, pleasant 78-year-old white male, on room air comfortable in no apparent distress. HEAD: Normocephalic/atraumatic. EYES: Normal reaction of pupils, equal size. Conjunctiva pink, sclera white. NOSE: Clear with pink turbinates. THROAT: No erythema or exudates. NECK: No masses, no JVD, no thyroid enlargement, no adenopathy. CHEST: No chest wall deformity. Symmetrical expansion. LUNGS: Equal air entry with a few scattered crackles, wheeze, rhonchi or dullness. CVS: Regular rate and rhythm, normal S1 and S2, no gallops, no rubs, systolic murmur ABDOMEN: Soft, nontender. No hepatosplenomegaly, normal bowel sounds, no guarding or rigidity. Left inguinal hernia repair site incisions clean dry and intact EXTREMITIES: No clubbing, chronic lower extremity edema 1+, and changes of chronic venous stasis present to bilateral lower extremities, no cyanosis, 2+ pulses and upper and lower extremities. MUSCULOSKELETAL: Muscle strength and tone normal. SPINE: No scoliosis or deformity SKIN: No rashes CENTRAL NERVOUS SYSTEM: Alert and oriented -3. No focal deficits, tone is normal in all 4 extremities. PSYCHIATRIC: Alert and oriented -3. Appropriate affect. Intact judgment and insight. - Labs CBC & Chem 7: 07/02/19 07:08 07/02/19 07:08 Labs: Abnormal Lab Results - Last 24 Hours (Table) 07/01/19 07/02/19 07/02/19 Range/Units 20:06 06:41 07:08 Lymphocytes # 0.7 L (1.0-4.8) k/uL Carbon Dioxide (22-30) mmol/L BUN (9-20) mg/dL Glucose (74-99) mg/dL POC Glucose (mg/dL) 269 H 137 H (75-99) mg/dL 07/02/19 Range/Units 07:08 Lymphocytes # (1.0-4.8) k/uL Carbon Dioxide 31 H (22-30) mmol/L BUN 26 H (9-20) mg/dL Glucose 139 H (74-99) mg/dL POC Glucose (mg/dL) (75-99) mg/dL Assessment and Plan Plan: 1 status post left inguinal hernia repair postoperative day #1. 2 history of severe COPD/alpha-1 antitrypsin deficiency, presently stable and the patient was placed back on his usual bronchodilators. 3 history of chronic hypoxic respiratory failure secondary to COPD and alpha-1 antitrypsin deficiency. 4 benign essential hypertension 5 history of nephrolithiasis 6 type 2 diabetes 7 hypercholesterolemia. Plan: Patient is stable from pulmonary perspective, continue encouraging deep breathing and coughing, encourage ambulation, maintain pain control, continue nebulized bronchodilators, no acute events overnight, today's blood work is mostly unremarkable. His COPD stable. Possible discharge home today I performed a history & physical examination of the patient and discussed their management with my nurse practitioner, Mami Payton. I reviewed the nurse practitioner's note and agree with the documented findings and plan of care. Lung sounds are positive for a few scattered crackles. The findings and the impression was discussed with the patient. I attest to the documentation by the nurse practitioner. Time with Patient: Less than 30
--- NOTE | 2019-07-02 11:47 | P.DS ---
Providers Expected date of discharge: 07/02/19 Attending physician: Efrem Francis Consults: 07/01/19 10:40 Consult Physician Routine Consulting Provider: Reed Rock Consult Reason/Comments: Chronic lung disease Do you want consulting provider notified?: Yes Consult Physician Routine Consulting Provider: Juancarlos Ledesma Consult Reason/Comments: Medical management Do you want consulting provider notified?: Yes Primary care physician: Stated None Hospital Course: 78-year-old male who underwent repair of incarcerated left inguinal hernia and left orchiectomy. Patient is doing well postoperatively without any complications. Tolerating diet without nausea or vomiting. Vital signs stable. Pain controlled on oral medications. He is stable for discharge home today. Please see EMR for further hospital course details. Discharge diagnosis 1. Status post repair of left inguinal hernia and left orchiectomy Nurse practitioner note has been reviewed by physician. Signing provider agrees with the documented findings, assessment, and plan of care. Patient Condition at Discharge: Stable Plan - Discharge Summary Discharge Rx Participant: No New Discharge Prescriptions: New Docusate [Colace] 100 mg PO BID #30 capsule Hydrocodone/Acetaminophen [Naselle 5-325] 1 tab PO Q6HR PRN 3 Days #12 tab PRN Reason: Pain No Action Zolpidem [Ambien] 10 mg PO HS Multivitamins, Thera [Multivitamin (formulary)] 1 tab PO DAILY Tamsulosin [Flomax] 0.4 mg PO BID Furosemide [Lasix] 40 mg PO DAILY Atorvastatin [Lipitor] 10 mg PO Q48H sitaGLIPtin PHOS/metFORMIN HCL [Janumet 50-500 mg Tablet] 1 tab PO BID cloNIDine HCL [Catapres] 0.3 mg PO BID Budesonide/Formoterol Fumarate [Symbicort 160-4.5 Mcg Inhaler] 2 puff INHALATION RT-BID Albuterol Sulfate [Proair Hfa] 1 - 2 puff INHALATION RT-Q6H PRN PRN Reason: Shortness Of Breath Ubidecarenone [Co Q-10] 100 mg PO DAILY Potassium Chloride [Klor-Con 10] 10 meq PO BID Pilocarpine HCl 5 mg PO TID Reeds-3 Fatty Acids/Fish Oil [Fish Oil 1,000 mg Softgel] 1 cap PO DAILY Melatonin 5 mg PO HS Calcium Carbonate/Vitamin D3 [Calcium 600-Vit D3 400 Caplet] 1 tab PO DAILY Atenolol 25 mg PO BID Zemaira 1 applic IV TU Spironolactone 5 mg PO TID PRN PRN Reason: URINARY RETENTION Furosemide [Lasix] 20 mg PO 1500 Discharge Medication List Albuterol Sulfate [Proair Hfa] 1 - 2 puff INHALATION RT-Q6H PRN 05/05/19 [Histor y] Atenolol 25 mg PO BID 05/05/19 [History] Atorvastatin [Lipitor] 10 mg PO Q48H 05/05/19 [History] Budesonide/Formoterol Fumarate [Symbicort 160-4.5 Mcg Inhaler] 2 puff INHALATION RT-BID 05/05/19 [History] Calcium Carbonate/Vitamin D3 [Calcium 600-Vit D3 400 Caplet] 1 tab PO DAILY 05/05/19 [History] Furosemide [Lasix] 40 mg PO DAILY 05/05/19 [History] Melatonin 5 mg PO HS 05/05/19 [History] Multivitamins, Thera [Multivitamin (formulary)] 1 tab PO DAILY 05/05/19 [History] Reeds-3 Fatty Acids/Fish Oil [Fish Oil 1,000 mg Softgel] 1 cap PO DAILY 05/05/19 [History] Pilocarpine HCl 5 mg PO TID 05/05/19 [History] Potassium Chloride [Klor-Con 10] 10 meq PO BID 05/05/19 [History] Tamsulosin [Flomax] 0.4 mg PO BID 05/05/19 [History] Ubidecarenone [Co Q-10] 100 mg PO DAILY 05/05/19 [History] Zemaira 1 applic IV TU 05/05/19 [History] Zolpidem [Ambien] 10 mg PO HS 05/05/19 [History] cloNIDine HCL [Catapres] 0.3 mg PO BID 05/05/19 [History] sitaGLIPtin PHOS/metFORMIN HCL [Janumet 50-500 mg Tablet] 1 tab PO BID 05/05/19 [History] Spironolactone 5 mg PO TID PRN 05/25/19 [History] Furosemide [Lasix] 20 mg PO 1500 06/29/19 [History] Docusate [Colace] 100 mg PO BID #30 capsule 07/02/19 [Rx] Hydrocodone/Acetaminophen [Naselle 5-325] 1 tab PO Q6HR PRN 3 Days #12 tab 07/02/19 [Rx] Follow up Appointment(s)/Referral(s): Efrem Francis MD [STAFF PHYSICIAN] - 07/10/19 10:30 am Patient Instructions/Handouts: Inguinal Hernia Repair (DC) Activity/Diet/Wound Care/Special Instructions: No driving while taking Naselle No lifting over 10 pounds You may shower. No soaking or tub baths Very light activity until you are reevaluated at your follow up appointment with your surgeon
[2019-07-02 11:48] LABS: Glucose,Whole Blood 149 mg/dL (75-99)
--- NOTE | 2019-07-02 16:01 | P.PN ---
Subjective Progress Note Date: 07/02/19 This is 78 her old male one of Dr. Ledesma with a previous medical history significant for chronic respiratory failure due to COPD as well as alpha 1 and Tetracyn deficiency currently on replacement therapy in the form of Zemeira has been following with Dr. Abdul and regular basis and he was cleared prior to the surgical intervention, hypertension and hypertensive cardio vascular disease, hyperlipidemia, diabetes mellitus type 2, nephrolithiasis, patient underwent left incarcerated inguinal hernia without any complications and I was asked to see the patient for medical management. 07/02: Patient states he has not had a bowel movement. He ate last night and this morning. The pain is controlled. He denies any nausea or vomiting. He denies any shortness of breath or chest pain. Patient has been seen by surgical services and plan for discharge home today. Review of Systems Constitutional: Denies anorexia, Denies chills, Denies lethargy, Denies malaise, Denies weakness Eyes: denies blurred vision, denies bulging eye, denies decreased vision, denies diplopia Ears, nose, mouth and throat: Denies dysphagia, Denies neck lump Cardiovascular: Reports decreased exercise tolerance, Reports dyspnea on exertion, Denies chest pain, Denies lightheadedness, Denies rapid heart beat, Denies shortness of breath, Denies syncope Respiratory: Reports cough, Reports home oxygen, Denies congestion, Denies respiratory infections, Denies sleep apnea, Denies snoring, Denies wheezing Gastrointestinal: Denies abdominal pain, Denies bloating, Denies BRBPR, Denies early satiety, Denies heartburn, Denies melena, Denies nausea, Denies vomiting Genitourinary: Denies dysuria, Denies nocturia Musculoskeletal: Denies myalgias Musculoskeletal: absent: ankle pain, ankle stiffness, ankle swelling, elbow pain, elbow stiffness, elbow swelling, foot pain, foot stiffness, foot swelling, hand pain, hand stiffness, hand swelling, hip pain, hip stiffness, hip swelling, knee pain, knee stiffness, knee swelling, shoulder pain, shoulder stiffness, shoulder swelling, wrist pain, wrist stiffness, wrist swelling Integumentary: Denies pruritus, Denies rash Neurological: Denies numbness, Denies weakness Psychiatric: Denies anxiety, Denies depression Endocrine: Denies fatigue, Denies weight change Objective - Vital Signs Vital signs: Vital Signs Temp 95.8 F L 07/02/19 09:58 Pulse 54 L 07/02/19 09:58 Resp 15 07/02/19 09:58 BP 103/63 07/02/19 09:58 Pulse Ox 95 07/02/19 09:58 Intake & Output 07/01/19 07/02/19 07/02/19 18:59 06:59 18:59 Intake Total 930 Output Total 205 675 800 Balance 725 -675 -800 Weight 72.575 kg Intake: IV 750 Oral 180 Output: Urine 200 675 800 Estimated Blood Loss 5 Other: Voiding Method Indwelling Catheter Indwelling Catheter Indwelling Catheter - Exam - Constitutional General appearance: average body habitus, no acute distress - EENT Eyes: anicteric sclerae, EOMI, PERRLA, no ptosis, no scleral icterus, normal appearance ENT: hearing grossly normal, NA/AT, normal oropharynx, no thrush Ears: bilateral: normal - Neck Neck: no lymphadenopathy, normal ROM, no rigidity, no stridor, no thyromegaly Carotids: bilateral: upstroke normal Thyroid: bilateral: normal size - Respiratory Respiratory: bilateral: diminished, negative: dullness, rales, rhonchi, wheezing, prolonged expiration - Cardiovascular Rhythm: regular Heart sounds: normal: S1, S2 Abnormal Heart Sounds: systolic murmur, no S3 Gallop, no S4 Gallop - Gastrointestinal General gastrointestinal: Normal bowel sounds, soft, no splenomegaly, tenderness, no umbilical hernia, no ventral hernia - Integumentary Integumentary: normal, normal turgor - Neurologic Neurologic: CNII-XII intact - Musculoskeletal Musculoskeletal: generalized weakness, strength equal bilaterally - Psychiatric Psychiatric: A&O x's 3, appropriate affect, intact judgment & insight - Labs CBC & Chem 7: 07/02/19 07:08 07/02/19 07:08 Labs: Abnormal Lab Results - Last 24 Hours (Table) 07/01/19 07/02/19 07/02/19 Range/Units 20:06 06:41 07:08 Lymphocytes # 0.7 L (1.0-4.8) k/uL Carbon Dioxide (22-30) mmol/L BUN (9-20) mg/dL Glucose (74-99) mg/dL POC Glucose (mg/dL) 269 H 137 H (75-99) mg/dL 07/02/19 Range/Units 07:08 Lymphocytes # (1.0-4.8) k/uL Carbon Dioxide 31 H (22-30) mmol/L BUN 26 H (9-20) mg/dL Glucose 139 H (74-99) mg/dL POC Glucose (mg/dL) (75-99) mg/dL Assessment and Plan Plan: 1. Post operative day 1 status post left inguinal hernia repair. Patient was instructed to use the incentive spirometer to reduce the incidence of atelectasis and healthcare associated pneumonia, he was already started on his bronchodilators after he was seen by primary medicine, and his oxygen, monitor the patient very closely, early ambulation. The patient has been cleared by surgical services for discharge home today. 2. Chronic respiratory failure due to COPD/alpha-1 antitrypsin deficiency. We will maintain the patient on oxygen 2 L nasal cannula, DuoNeb 3 mL nebulization 4 times every day, incentive spirometer, Symbicort 160/4.5 g 2 puffs inhalations twice every day. 3. Hypertension and hypertensive cardiovascular disease. Continue atenolol 25 mg orally twice every day. 4. Hyperlipidemia. Continue patient on Lipitor 10 mg orally daily. 5. Diabetes mellitus type 2. Continue patient on Janumet 50/500 one tablet orally twice every day, blood glucose level before each meal and bedtime. 6. Urinary retention. Patient did have a Morgan catheter. Continue Flomax 0.4 g orally once every day. 7. History of nephrolithiasis. Stable. 8. DVT prophylaxis. Heparin 5000 units subcutaneously every 8 hours. 9. Dry mouth. Continue pilocarpine 5 mg orally 3 times every day. Discharge plan: Home Impression and plan of care have been directed as dictated by the signing physician. Jennifer Meeks nurse practitioner acting as scribe for signing physician.
[2019-07-02] MEDS ORDERED: ATORVASTATIN 10 MG TAB PO SCH (21:00)
== END 2019-07-02 12:42 ==
LOC: OR 07:53 → 4SSUR 13:32 → OR 07-02 12:42
PROVIDERS: ATTEND Surgery
DX: K40.30 Unilateral inguinal hernia, with obstruction, without gangrene, not specified as recurrent (principal); E88.01 Alpha-1-antitrypsin deficiency; E78.2 Mixed hyperlipidemia; I12.9 Hypertensive chronic kidney disease with stage 1 through stage 4 chronic kidney disease, or unspecified chronic kidney disease; E11.22 Type 2 diabetes mellitus with diabetic chronic kidney disease; N18.9 Chronic kidney disease, unspecified; I25.10 Atherosclerotic heart disease of native coronary artery without angina pectoris; J44.9 Chronic obstructive pulmonary disease, unspecified; R60.0 Localized edema; I51.7 Cardiomegaly; E78.00 Pure hypercholesterolemia, unspecified; N40.0 Benign prostatic hyperplasia without lower urinary tract symptoms; J96.11 Chronic respiratory failure with hypoxia; Z86.14 Personal history of Methicillin resistant Staphylococcus aureus infection; Z96.0 Presence of urogenital implants; Z87.442 Personal history of urinary calculi; Z95.828 Presence of other vascular implants and grafts; Z87.891 Personal history of nicotine dependence; Z80.1 Family history of malignant neoplasm of trachea, bronchus and lung; Z83.6 Family history of other diseases of the respiratory system; Z79.84 Long term (current) use of oral hypoglycemic drugs; Z99.81 Dependence on supplemental oxygen; Z79.51 Long term (current) use of inhaled steroids; Z79.899 Other long term (current) drug therapy; Z88.8 Allergy status to other drugs, medicaments and biological substances
CPT/HCPCS: 94640 ×3; 88305; 80048; 85025; 88302; 49507; 54520; J2250; J1644 ×2; J1100; J0690; J2405; J3010; J1170 ×2

== ENCOUNTER 2019-07-23 09:11 | Inpatient (IN) | payer MEDICARE ==
[2019-07-23] MEDS ORDERED: ASPIRIN 81 MG PO STA (09:34)
--- NOTE | 2019-07-23 09:41 | ED ---
General Adult HPI - General Chief complaint: Chest Pain Stated complaint: Chest Pain Time Seen by Provider: 07/23/19 09:18 Source: patient Mode of arrival: ambulatory Limitations: no limitations - History of Present Illness Initial comments: Dictation was produced using [employer] dictation software. please excuse any grammatical, word or spelling errors. Chief Complaint: 78-year-old male with chief complaint of chest pain. History of Present Illness: 78-year-old male. He presents today with chief complaint of chest pain 3 days. Describes the pain as pressure-like sensation over his left anterior chest. Denies any radiation to the jaw, extremities, shoulders or back. No associated diaphoresis or feeling of clamminess. Patient reports that his symptoms began as a mild discomfort to his anterior chest. He states he thought it was gas pain. He tried taking aspirin medications with no relief. Patient denies any cardiac history. He does have a history of recently diagnosed alpha-1 antitrypsin deficiency. Patient denies any numbness doing paresthesias to the extremities. States his pain is mild. States that there is no exacerbating or mitigating symptoms. Denies any lower extremity symptoms. No history of pulmonary embolus or DVT. The ROS documented in this emergency department record has been reviewed and confirmed by me. Those systems with pertinent positive or negative responses have been documented in the HPI. All other systems are other negative and/or noncontributory. PHYSICAL EXAM: General Impression: Alert and oriented x3, not in acute distress HEENT: Normocephalic atraumatic, extra-ocular movements intact, pupils equal and reactive to light bilaterally, mucous membranes moist. Cardiovascular: Heart regular rate and rhythm, S1&S2 audible, no murmurs, rubs or gallops Chest: Lungs clear to auscultation bilaterally, no rhonchi, no wheeze, no rales Abdomen: Bowel sounds present, abdomen soft, non-tender, non-distended, no organomegaly Musculoskeletal: Pulses present and equal in all extremities, bilateral lower extremity lymphedema Motor: no focal deficits noted Neurological: CN II-XII grossly intact, no focal motor or sensory deficits noted Skin: Intact with no visualized rashes Psych: Normal affect and mood ED course: 78-year-old male presents with clinical presentation consistent with atypical chest pain with typical features. Vital signs upon arrival are within acceptable limits. Laboratory evaluation obtained. CBC unremarkable. Coag panel negative. D-dim er elevated 7.8. Metabolic panel shows slight elevation of renal markers. Troponin elevated 0.055. Given elevated d-dimer CT angios the chest was obtained. There is no findings for pulmonary embolism at this time. There is right axillary adenopathy. Venous Doppler study of the leg shows occlusive DVT in the left popliteal vein. Patient is symptomatically in this area. The patient admitted for NSTEMI and left lower extremity DVT. Patient be admitted to Dr. Diggs. Dr. Diggs evaluated patient at bedside 1 emergency department. started on heparin. Cardiology will be consulted for elevated troponin. EKG interpretation: Ventricular rate 84, normal sinus rhythm, right bundle branch block,. Interval 162, care is 150, QTc 460. No CT prolongation, no QTC prolongation, no ST or T-wave changes noted. No old EKG for comparison Overall, this EKG is unremarkable - Related Data Home Medications Medication Instructions Recorded Confirmed Albuterol Sulfate [Proair Hfa] 1 - 2 puff INHALATION RT-Q6H PRN 05/05/19 07/23/19 Atenolol 25 mg PO BID 05/05/19 07/23/19 Atorvastatin [Lipitor] 10 mg PO Q48H 05/05/19 07/23/19 Budesonide/Formoterol Fumarate 2 puff INHALATION RT-BID 05/05/19 07/23/19 [Symbicort 160-4.5 Mcg Inhaler] Calcium Carbonate/Vitamin D3 1 tab PO DAILY 05/05/19 07/23/19 [Calcium 600-Vit D3 400 Caplet] Melatonin 5 mg PO HS 05/05/19 07/23/19 Multivitamins, Thera [Multivitamin 1 tab PO DAILY 05/05/19 07/23/19 (formulary)] Putnam-3 Fatty Acids/Fish Oil [Fish 1 cap PO DAILY 05/05/19 07/23/19 Oil 1,000 mg Softgel] Pilocarpine HCl 5 mg PO TID PRN 05/05/19 07/23/19 Potassium Chloride [Klor-Con 10] 10 meq PO BID 05/05/19 07/23/19 Tamsulosin [Flomax] 0.4 mg PO BID 05/05/19 07/23/19 Ubidecarenone [Co Q-10] 100 mg PO DAILY 05/05/19 07/23/19 Zemaira 1 applic IV TU 05/05/19 07/23/19 Zolpidem [Ambien] 10 mg PO HS 05/05/19 07/23/19 cloNIDine HCL [Catapres] 0.3 mg PO BID 05/05/19 07/23/19 sitaGLIPtin PHOS/metFORMIN HCL 1 tab PO BID 05/05/19 07/23/19 [Janumet 50-500 mg Tablet] Spironolactone 25 mg PO DAILY 05/25/19 07/23/19 Furosemide [Lasix] 40 mg PO DAILY 07/23/19 07/23/19 Allergies Allergy/AdvReac Type Severity Reaction Status Date / Time lisinopril AdvReac "picky Verified 07/23/19 10:25 throat"/Cough nifedipine [From Procardia] AdvReac Cough Verified 07/23/19 10:25 Review of Systems ROS Statement: Those systems with pertinent positive or pertinent negative responses have been documented in the HPI. ROS Other: All systems not noted in ROS Statement are negative. Past Medical History Past Medical History: COPD, Diabetes Mellitus, Hyperlipidemia, Hypertension Additional Past Medical History / Comment(s): [facility] VISIT ON 05/25/19 FOR URINARY RETENTION, HAS HAD URINARY CATHETER SINCE. Lung disorder: Alpha 1 antitrypsin deficiancy, uses O2 via NC prn @ 2L, recieves weekly infusions via port BY VISITING NURSE. Leg edema. HX: RENAL STONES History of Any Multi-Drug Resistant Organisms: MRSA Date of last positivie culture/infection: unsure 5-8 yrs ago MDRO Source:: umbilical incision Past Surgical History: Hernia Repair Additional Past Surgical History / Comment(s): BILATERAL CATARACTS. Umb. hernia repair. Eyelid sx. PORT-A-CATH. Past Anesthesia/Blood Transfusion Reactions: No Reported Reaction Additional Past Anesthesia/Blood Transfusion Reaction / Comment(s): NO GENERAL ANESTHESIA DUE TO LUNG DISORDER. Past Psychological History: No Psychological Hx Reported Smoking Status: Former smoker Past Alcohol Use History: Occasional Past Drug Use History: None Reported - Past Family History Mother Family Medical History: Cancer (Mother at age of 65 from lung cancer.) Additional Family Medical History / Comment(s): lung Sister(s) Family Medical History: Cancer (Patient had 2 sisters an older sister who had lung cancer and possible alpha-1 antitrypsin deficiency the other one from pneumonia.) Additional Family Medical History / Comment(s): 1 sister lung ca, one sister pneumonia Father Family Medical History: No Reported History (Father at age of 85 from old age.) Additional Family Medical History / Comment(s): Patient has no kids. Only step kids General Exam Limitations: no limitations Course Vital Signs 07/23/19 09:16 Temperature 97.2 F L Pulse Rate 88 Respiratory 20 Rate Blood Pressure 128/81 O2 Sat by Pulse 90 L Oximetry Medical Decision Making - Lab Data Result diagrams: 07/23/19 09:25 07/23/19 09:25 Lab Results 07/23/19 07/23/19 07/23/19 Range/Units 09:25 09:25 09:25 WBC 7.5 (3.8-10.6) k/uL RBC 5.77 (4.30-5.90) m/uL Hgb 17.4 (13.0-17.5) gm/dL Hct 52.3 (39.0-53.0) % MCV 90.6 (80.0-100.0) fL MCH 30.2 (25.0-35.0) pg MCHC 33.3 (31.0-37.0) g/dL RDW 13.2 (11.5-15.5) % Plt Count 175 (150-450) k/uL Neutrophils % (Manual) 63 % Band Neutrophils % 8 % Lymphocytes % (Manual) 17 % Monocytes % (Manual) 12 % Neutrophils # (Manual) 5.30 (1.3-7.7) k/uL Lymphocytes # (Manual) 1.28 (1.0-4.8) k/uL Monocytes # (Manual) 0.90 (0-1.0) k/uL Nucleated RBCs 0 (0-0) /100 WBC Manual Slide Review Performed Large Platelets Present PT 11.5 (9.0-12.0) sec INR 1.1 (<1.2) APTT 25.5 (22.0-30.0) sec D-Dimer 7.80 H (<0.60) mg/L FEU Sodium 138 (137-145) mmol/L Potassium 4.6 (3.5-5.1) mmol/L Chloride 97 L (98-107) mmol/L Carbon Dioxide 28 (22-30) mmol/L Anion Gap 13 mmol/L BUN 34 H (9-20) mg/dL Creatinine 1.39 H (0.66-1.25) mg/dL Est GFR (CKD-EPI)AfAm 57 (>60 ml/min/1.73 sqM) Est GFR (CKD-EPI)NonAf 49 (>60 ml/min/1.73 sqM) Glucose 185 H (74-99) mg/dL Calcium 9.2 (8.4-10.2) mg/dL Magnesium 2.0 (1.6-2.3) mg/dL Total Bilirubin 0.9 (0.2-1.3) mg/dL AST 94 H (17-59) U/L ALT 66 (21-72) U/L Alkaline Phosphatase 79 (38-126) U/L Troponin I (0.000-0.034) ng/mL Total Protein 8.0 (6.3-8.2) g/dL Albumin 4.1 (3.5-5.0) g/dL 07/23/19 Range/Units 09:25 WBC (3.8-10.6) k/uL RBC (4.30-5.90) m/uL Hgb (13.0-17.5) gm/dL Hct (39.0-53.0) % MCV (80.0-100.0) fL MCH (25.0-35.0) pg MCHC (31.0-37.0) g/dL RDW (11.5-15.5) % Plt Count (150-450) k/uL Neutrophils % (Manual) % Band Neutrophils % % Lymphocytes % (Manual) % Monocytes % (Manual) % Neutrophils # (Manual) (1.3-7.7) k/uL Lymphocytes # (Manual) (1.0-4.8) k/uL Monocytes # (Manual) (0-1.0) k/uL Nucleated RBCs (0-0) /100 WBC Manual Slide Review Large Platelets PT (9.0-12.0) sec INR (<1.2) APTT (22.0-30.0) sec D-Dimer (<0.60) mg/L FEU Sodium (137-145) mmol/L Potassium (3.5-5.1) mmol/L Chloride (98-107) mmol/L Carbon Dioxide (22-30) mmol/L Anion Gap mmol/L BUN (9-20) mg/dL Creatinine (0.66-1.25) mg/dL Est GFR (CKD-EPI)AfAm (>60 ml/min/1.73 sqM) Est GFR (CKD-EPI)NonAf (>60 ml/min/1.73 sqM) Glucose (74-99) mg/dL Calcium (8.4-10.2) mg/dL Magnesium (1.6-2.3) mg/dL Total Bilirubin (0.2-1.3) mg/dL AST (17-59) U/L ALT (21-72) U/L Alkaline Phosphatase (38-126) U/L Troponin I 0.055 H* (0.000-0.034) ng/mL Total Protein (6.3-8.2) g/dL Albumin (3.5-5.0) g/dL Disposition Clinical Impression: DVT (deep venous thrombosis) Disposition: ADMITTED IP TO THIS [facility] Condition: Fair Referrals: Juancarlos Ledesma MD [Primary Care Provider] - 1-2 days Decision Time: 13:11
[2019-07-23 10:14] LABS: Albumin 4.1 g/dL (3.5-5.0); Calcium 9.2 mg/dL (8.4-10.2); Potassium 4.6 mmol/L (3.5-5.1); Total Bilirubin 0.9 mg/dL (0.2-1.3)
[2019-07-23 10:20] LABS: HCT 52.3 % (39.0-53.0); HGB 17.4 gm/dL (13.0-17.5); MCH 30.2 pg (25.0-35.0); MCHC 33.3 g/dL (31.0-37.0); MCV 90.6 fL (80.0-100.0); Mean Platelet Volume 6.9; Platelet Count 175 k/uL (150-450); RBC 5.77 m/uL (4.30-5.90); RDW 13.2 % (11.5-15.5); WBC 7.5 k/uL (3.8-10.6)
[2019-07-23 10:24] LABS: INR 1.1 (<1.2); Partial Thromboplastin Time 25.5 sec (22.0-30.0); Prothrombin Time 11.5 sec (9.0-12.0)
--- NOTE | 2019-07-23 10:24 | XR ---
EXAMINATION TYPE: XR chest 2V DATE OF EXAM: 07/23/2019 COMPARISON: None HISTORY: 78 year-old male chest pain TECHNIQUE: AP and lateral views FINDINGS: Right anterior chest wall injection port with subclavian approaching catheter tip at the mid SVC leve l. Heart is enlarged. Rightward patient rotation ultrasonography mediastinal contours. Elongated/ecta tic thoracic aorta is suspected. Focal patchy right midlung opacity. Background of diffuse interstiti al densities. Some strandy atelectasis or scarring at the left base. No pleural effusion. IMPRESSION: 1. Cardiomegaly and interstitial changes, correlate for possible CHF with pulmonary vascular congesti on. 2. More focal opacity at the right midlung could represent developing pulmonary edema versus early pn eumonia. Clinically correlate.
[2019-07-23 11:08] LABS: D-Dimer 7.8 mg/L FEU (<0.60)
[2019-07-23] MEDS ORDERED: HEPARIN SODIUM,PORCINE 5,000 UNIT/ML 1 ML VIAL IV PRN (11:13)
[2019-07-23] MEDS ORDERED: HEPARIN SODIUM,PORCINE 10,000 UNIT/ML 1 ML VIAL IV ONE (11:13)
[2019-07-23 11:15] LABS: Band Neutrophils % 8 %; Lymphocytes # (M) 1.28 k/uL (1.0-4.8); Neutrophils % (M) 63 %; Nucleated Red Blood Cells 0 /100 WBC (0-0); Total Cells Counted 100
[2019-07-23 11:18] LABS: Large Platelets Present
[2019-07-23] MEDS ORDERED: SODIUM CHLORIDE 0.9% 1,000 ML IV STA (11:19)
--- NOTE | 2019-07-23 12:11 | CT ---
EXAMINATION TYPE: CT angio chest DATE OF EXAM: 07/23/2019 COMPARISON: None HISTORY: chest pain, SOB CT DLP: 246.3 mGycm CONTRAST: CT chest with contrast and 3D reconstruction with MIP imaging is performed with IV Contrast, patient injected with 80 mL of Isovue 370. Contrast-enhanced CT of the chest was performed through the course of the pulmonary arteries with elham g and mediastinal window settings submitted. 3D reconstruction with MIP imaging was also performed. PULMONARY ARTERIES: The pulmonary arteries and their major tributaries are patent. I do not see ivana dence for sizable filling defect to suggest pulmonary embolic process. LUNGS: Hyperinflation compatible with COPD. Left lower lobe pulmonary nodule measuring 1 cm. Scattere d areas of linear scarring and/or atelectasis. MEDIASTINUM: Thoracic aorta is of normal caliber,however, evaluation is limited given timing of the contrast bolus. If there is concern for thoracic aortic pathology consider MARYBETH. Correlate clinicall y . The heart is not enlarged. No evidence for mediastinal mass. No mediastinal lymph nodes greater than 1cm. HILAR STRUCTURES: No evidence for mass. No hilar lymph nodes greater than 1 cm. UPPER ABDOMEN: No significant abnormality is seen. IMPRESSION: 1. No evidence for Pulmonary embolism at this time. 2. Left lower lobe pulmonary nodule. 3. Right axillary adenopathy measuring up to 1.7 cm.
[2019-07-23] MEDS: HEPARIN SOD,PORK IN 0.45% NACL 25,000 UNIT in 0.45% NACL 1 250ML.BAG IV SCH (12:34)
--- NOTE | 2019-07-23 12:53 | US ---
EXAMINATION TYPE: US venous doppler duplex LE DATE OF EXAM: 07/23/2019 12:29 PM COMPARISON: NONE CLINICAL HISTORY: dvt. Swelling bilaterally SIDE PERFORMED: Bilateral TECHNIQUE: The lower extremity deep venous system is examined utilizing real time linear array sonog clarita with graded compression, doppler sonography and color-flow sonography. VESSELS IMAGED: External Iliac Vein (EIV) Common Femoral Vein Deep Femoral Vein Greater Saphenous Vein * Femoral Vein Popliteal Vein Small Saphenous Vein * Proximal Calf Veins (* superficial vessels) Right Leg: Appears negative for DVT Left Leg: Internal echoes with minimal flow seen at proximal/mid popiteal vein, not fully compressib le IMPRESSION: 1. Suspect nearly occlusive DVT left popliteal vein. 2. No evidence of DVT right leg.
[2019-07-23] MEDS ORDERED: NITROGLYCERIN SL TABS 0.4 MG TAB SUBLINGUAL PRN (13:11)
[2019-07-23] MEDS ORDERED: ALBUTEROL NEBULIZED 2.5 MG/3 ML INHALATION PRN (14:00)
--- NOTE | 2019-07-23 15:31 | P.CNPUL ---
History of Present Illness Consult date: 07/23/19 Reason for consult: chest pain Chief complaint: Chest pain, lower extremity swelling History of present illness: This is a 78-year-old white male patient with history of alpha-1 antitrypsin deficiency, chronic hypoxic respiratory failure related to advanced COPD, who follows with Dr. Abdul in the pulmonary clinic who presents to the emergency department on 07/23/2019 with complaints of chest pressure 2 days. He stated this sensation was similar to bloating in the chest area in the anterior part. Thought it was gas pain. He was taking aspirin with no relief. Patient is on Zemaira infusions for his alpha 1 antitrypsin deficiency, and the combination of Symbicort, and Pro-air. Patient recently had left inguinal hernia repair in June 2019. His other medical history includes diabetes mellitus, hypertensi on, hyperlipidemia, chronic lower extremity edema, patient is a former smoker back in his 20s, for short period of time. Denied any fever, denied any cough, but did admit to some subjective chills. States his legs are chronically swollen on a regular basis, denied any increased swelling pain or tenderness in his calves. Chest x-ray in the ER showed cardiomegaly and interstitial changes with possibility of CHF and pulmonary vascular congestion, and more focal opacity at the right midlung. CBC was all within normal limits, d-dimer did come back elevated at 7.8, with a troponin leak of 0.055. CT angios chest showed no evidence of pulmonary embolism, but did show left lower lobe pulmonary nodule measuring 1 cm with scattered areas of linear scarring and/or atelectasis. And right axillary adenopathy measuring up to 1.7 cm. Patient has been started on heparin infusion, and were consulted for evaluation of the left lower lobe pulmonary nodule and patient's history of COPD Review of Systems All systems: negative Constitutional: Denies chills, Denies fever Eyes: denies blurred vision, denies pain Ears, nose, mouth and throat: Denies headache, Denies sore throat Cardiovascular: Reports chest pain, Reports leg edema, Denies shortness of breath Respiratory: Reports dyspnea, Reports home oxygen, Denies cough Gastrointestinal: Denies abdominal pain, Denies diarrhea, Denies nausea, Denies vomiting Musculoskeletal: Denies myalgias Integumentary: Denies pruritus, Denies rash Neurological: Denies numbness, Denies weakness Psychiatric: Denies anxiety, Denies depression Endocrine: Denies fatigue, Denies weight change Past Medical History Past Medical History: COPD, Diabetes Mellitus, Hyperlipidemia, Hypertension Additional Past Medical History / Comment(s): [facility] VISIT ON 05/25/19 FOR URINARY RETENTION, HAS HAD URINARY CATHETER SINCE. Lung disorder: Alpha 1 antitrypsin deficiancy, uses O2 via NC prn @ 2L, recieves weekly infusions via port BY VISITING NURSE. Leg edema. HX: RENAL STONES History of Any Multi-Drug Resistant Organisms: MRSA Date of last positivie culture/infection: unsure 5-8 yrs ago MDRO Source:: umbilical incision Past Surgical History: Hernia Repair Additional Past Surgical History / Comment(s): BILATERAL CATARACTS. Umb. hernia repair. Eyelid sx. PORT-A-CATH. Past Anesthesia/Blood Transfusion Reactions: No Reported Reaction Additional Past Anesthesia/Blood Transfusion Reaction / Comment(s): NO GENERAL ANESTHESIA DUE TO LUNG DISORDER. Past Psychological History: No Psychological Hx Reported Smoking Status: Former smoker Past Alcohol Use History: Occasional Past Drug Use History: None Reported - Past Family History Mother Family Medical History: Cancer (Mother at age of 65 from lung cancer.) Additional Family Medical History / Comment(s): lung Sister(s) Family Medical History: Cancer (Patient had 2 sisters an older sister who had lung cancer and possible alpha-1 antitrypsin deficiency the other one from pneumonia.) Additional Family Medical History / Comment(s): 1 sister lung ca, one sister pneumonia Father Family Medical History: No Reported History (Father at age of 85 from old age.) Additional Family Medical History / Comment(s): Patient has no kids. Only step kids Medications and Allergies Home Medications Medication Instructions Recorded Confirmed Type Albuterol Sulfate [Proair Hfa] 1 - 2 puff INHALATION RT-Q6H PRN 05/05/19 07/23/19 History Atenolol 25 mg PO BID 05/05/19 07/23/19 History Atorvastatin [Lipitor] 10 mg PO Q48H 05/05/19 07/23/19 History Budesonide/Formoterol Fumarate 2 puff INHALATION RT-BID 05/05/19 07/23/19 History [Symbicort 160-4.5 Mcg Inhaler] Calcium Carbonate/Vitamin D3 1 tab PO DAILY 05/05/19 07/23/19 History [Calcium 600-Vit D3 400 Caplet] Melatonin 5 mg PO HS 05/05/19 07/23/19 History Multivitamins, Thera [Multivitamin 1 tab PO DAILY 05/05/19 07/23/19 History (formulary)] [place]-3 Fatty Acids/Fish Oil [Fish 1 cap PO DAILY 05/05/19 07/23/19 History Oil 1,000 mg Softgel] Pilocarpine HCl 5 mg PO TID PRN 05/05/19 07/23/19 History Potassium Chloride [Klor-Con 10] 10 meq PO BID 05/05/19 07/23/19 History Tamsulosin [Flomax] 0.4 mg PO BID 05/05/19 07/23/19 History Ubidecarenone [Co Q-10] 100 mg PO DAILY 05/05/19 07/23/19 History Zemaira 1 applic IV TU 05/05/19 07/23/19 History Zolpidem [Ambien] 10 mg PO HS 05/05/19 07/23/19 History cloNIDine HCL [Catapres] 0.3 mg PO BID 05/05/19 07/23/19 History sitaGLIPtin PHOS/metFORMIN HCL 1 tab PO BID 05/05/19 07/23/19 History [Janumet 50-500 mg Tablet] Spironolactone 25 mg PO DAILY 05/25/19 07/23/19 History Furosemide [Lasix] 40 mg PO DAILY 07/23/19 07/23/19 History Allergies Allergy/AdvReac Type Severity Reaction Status Date / Time lisinopril AdvReac "picky Verified 07/23/19 10:25 throat"/Cough nifedipine [From Procardia] AdvReac Cough Verified 07/23/19 10:25 Physical Exam Vitals: Vital Signs Temp Pulse Resp BP Pulse Ox 07/23/19 13:44 98.3 F 07/23/19 13:32 81 18 117/72 95 07/23/19 13:28 92 L 07/23/19 13:10 80 18 96/67 89 L 07/23/19 09:16 97.2 F L 88 20 128/81 90 L Intake and Output 07/23/19 07/23/19 07/23/19 06:59 14:59 22:59 Other: Weight 70.76 kg GENERAL EXAM: Alert, active, pleasant 78-year-old white male, on 2 L of oxygen and the pulse ox of 95% in no apparent distress. HEAD: Normocephalic/atraumatic. EYES: Normal reaction of pupils, equal size. Conjunctiva pink, sclera white. NOSE: Clear with pink turbinates. THROAT: No erythema or exudates. NECK: No masses, no JVD, no thyroid enlargement, no adenopathy. CHEST: No chest wall deformity. Symmetrical expansion. LUNGS: Equal air entry with a few scattered crackles, no wheeze, rhonchi or dullness. CVS: Regular rate and rhythm, normal S1 and S2, no gallops, no rubs, systolic murmur ABDOMEN: Soft, nontender. No hepatosplenomegaly, normal bowel sounds, no guarding or rigidity. EXTREMITIES: No clubbing, chronic lower extremity edema 1+, and changes of chronic venous stasis present to bilateral lower extremities, no cyanosis, 2+ pulses and upper and lower extremities. MUSCULOSKELETAL: Muscle strength and tone normal. SPINE: No scoliosis or deformity SKIN: No rashes CENTRAL NERVOUS SYSTEM: Alert and oriented -3. No focal deficits, tone is normal in all 4 extremities. PSYCHIATRIC: Alert and oriented -3. Appropriate affect. Intact judgment and insight. Results - Laboratory Findings CBC and BMP: 07/23/19 09:25 07/23/19 09:25 PT/INR, D-dimer PT 11.5 sec (9.0-12.0) 07/23/19 09:25 INR 1.1 (<1.2) 07/23/19 09:25 D-Dimer 7.80 mg/L FEU (<0.60) H 07/23/19 09:25 Abnormal lab findings: Abnormal Labs 07/23/19 07/23/19 07/23/19 09:25 09:25 09:25 D-Dimer 7.80 H Chloride 97 L BUN 34 H Creatinine 1.39 H Glucose 185 H AST 94 H Troponin I 0.055 H* - Diagnostic Findings Chest x-ray: report reviewed, image reviewed CT scan - chest: report reviewed, image reviewed Assessment and Plan Plan: Assessment: #1. Pressure-like chest discomfort with the possibility of exacerbation of congestive heart failure, with previously preserved ventricular systolic function, BNP is pending. Chest x-ray showed pulmonary vascular congestion, and interstitial edema #2. Left popliteal DVT #3. Chronic lower extremity swelling #4. Left lower lobe pulmonary nodule measuring 1 cm possibly related to scarring, will be followed on outpatient basis #5. History of severe COPD, known history of alpha-1 antitrypsin deficiency on Zemaira infusions #6. Recent history of left inguinal hernia repair in June 2019 #7. Acute kidney injury #8. Positive troponin #9. Diabetes mellitus #10. Hypertension #11. Hyperlipidemia #12. 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 CTA chest showed no evidence of pulmonary embolism, but did show left lower lobe 1 cm nodule too small to biopsy, will be followed on outpatient basis. COPD seems to be stable for now, and continue Symbicort, nebulized treatments on an as-needed basis. Check coverage for Xarelto or Eliquis. Hemodynamically patient is stable, no acute distress. We'll continue to follow I performed a history & physical examination of the patient and discussed their management with my nurse practitioner, Mami Payton. I reviewed the nurse pr actitioner's note and agree with the documented findings and plan of care. Lung sounds are positive for diminished breath sounds. The findings and the impression was discussed with the patient. I attest to the documentation by the nurse practitioner. Time with Patient: Greater than 30
--- NOTE | 2019-07-23 19:01 | ECHOF ---
Referral Reason:interstitial pulmonary edema MEASUREMENTS -------- HEIGHT: 165.1 cm WEIGHT: 70.8 kg BP: 117/72 IVSd: 1.3 cm (0.6 - 1.1) LVIDd: 4.3 cm (3.9 - 5.3) LVPWd: 1.2 cm (0.6 - 1.1) IVSs: 1.7 cm LVIDs: 2.0 cm LVPWs: 1.8 cm RVIDd: 3.6 cm (< 3.3) LAESV Index (A-L): 34.14 ml/m Ao Diam: 3.8 cm (2.0 - 3.7) EPSS: 0.2 cm MV E Arthur: 0.61 m/s MV DecT: 219 ms MV A Arthur: 0.73 m/s MV E/A Ratio: 0.82 AV maxP.95 mmHg AV meanP.05 mmHg AR PHT: 466 ms RAP: 5.00 mmHg RVSP: 57.88 mmHg MV EF SLOPE: 44.82 mm/s (70 - 150) MV EXCURSION: 13.19 mm (> 18.000) FINDINGS -------- Undetermined rhythm. This was a technically good study. The left ventricular size is normal. There is moderate concentric left ventricular hypertrophy. O verall left ventricular systolic function is normal with, an EF between 55 - 60 %. The right ventricle is normal in size. The left atrium is moderately dilated. LA is moderately dilated 34-39 ml/m2 The right atrial size is normal. There is mild aortic regurgitation. There is moderate aortic stenosis present. Peak/mean gradient across the Aortic Valve is 32.95mmHg / 18.05mmHg. Mild mitral annular calcification present. Moderate mitral regurgitation is present. Moderate pro lapse of the posterior mitral valve leaflet. Mild tricuspid regurgitation present. There is moderate pulmonary hypertension. The right ventric ular systolic pressure, as measured by Doppler, is 57.88mmHg. There is no pulmonic regurgitation present. The aortic root size is normal. There is no pericardial effusion. CONCLUSIONS -------- 1. Undetermined rhythm. 2. This was a technically good study. 3. The left ventricular size is normal. 4. There is moderate concentric left ventricular hypertrophy. 5. Overall left ventricular systolic function is normal with, an EF between 55 - 60 %. 6. The right ventricle is normal in size. 7. The left atrium is moderately dilated. 8. LA is moderately dilated 34-39 ml/m2 9. The right atrial size is normal. 10. There is mild aortic regurgitation. 11. There is moderate aortic stenosis present. 12. Peak/mean gradient across the Aortic Valve is 32.95mmHg / 18.05mmHg. 13. Mild mitral annular calcification present. 14. Moderate mitral regurgitation is present. 15. Moderate prolapse of the posterior mitral valve leaflet. 16. Mild tricuspid regurgitation present. 17. There is moderate pulmonary hypertension. 18. The right ventricular systolic pressure, as measured by Doppler, is 57.88mmHg. 19. There is no pulmonic regurgitation present. 20. The aortic root size is normal. 21. There is no pericardial effusion. [employer]ERSON [employer]ESS[employer]: Ledy Mcginnis RDCS
[2019-07-23] MEDS: SYMBICORT 160-4.5 MCG INHALER INHALATION SCH (20:25)
[2019-07-23] MEDS: MELATONIN 5 MG TABLET PO SCH (21:02)
[2019-07-23] MEDS: ZOLPIDEM 10 MG TAB PO SCH (21:02)
[2019-07-23 21:03] LABS: Glucose,Whole Blood 184 mg/dL (75-99)
[2019-07-23] MEDS: cloNIDine HCL 0.1 MG TAB PO SCH (21:05)
[2019-07-23] MEDS: ATENOLOL 25 MG TAB PO SCH (21:06)
[2019-07-23] MEDS: ATORVASTATIN 10 MG TAB PO SCH (21:06)
[2019-07-23] MEDS: POTASSIUM CHLORIDE ER 10 MEQ TAB.ER.PRT PO SCH (21:06)
[2019-07-23] MEDS: TAMSULOSIN 0.4 MG CAP.ER.24H PO SCH (21:06)
[2019-07-23] MEDS: metFORMIN 500 MG TAB PO SCH (21:06)
[2019-07-23] MEDS: LINAGLIPTIN 5 MG TABLET PO SCH (21:06)
[2019-07-24 03:53] LABS: Cholesterol 170 mg/dL (<200); HDL Cholesterol 37 mg/dL (40-60); LDL Cholesterol,Calculated 95 mg/dL (0-99); Triglycerides 189 mg/dL (<150)
[2019-07-24 06:12] LABS: HCT 47.4 % (39.0-53.0); HGB 15.7 gm/dL (13.0-17.5); MCH 30.1 pg (25.0-35.0); MCHC 33.1 g/dL (31.0-37.0); Mean Platelet Volume 6.6; Platelet Count 165 k/uL (150-450); RBC 5.21 m/uL (4.30-5.90); RDW 13.3 % (11.5-15.5); WBC 7.2 k/uL (3.8-10.6)
[2019-07-24 06:31] LABS: Glucose,Whole Blood 149 mg/dL (75-99)
[2019-07-24 06:40] LABS: Calcium 8.4 mg/dL (8.4-10.2); Potassium 4.3 mmol/L (3.5-5.1)
[2019-07-24] MEDS: HEPARIN SOD,PORK IN 0.45% NACL 25,000 UNIT in 0.45% NACL 1 250ML.BAG IV SCH ×2 (07:02→16:39)
[2019-07-24] MEDS: SYMBICORT 160-4.5 MCG INHALER INHALATION SCH ×2 (07:15→19:45)
[2019-07-24] MEDS ORDERED: ASPIRIN 325 MG TAB PO SCH (09:00)
--- NOTE | 2019-07-24 09:06 | P.CRDCN ---
History of Present Illness Consult date: 07/24/19 Requesting physician: Damon Diggs Consult reason: congestive heart failure Chief complaint: Chest discomfort, bilateral lower extremity edema History of present illness: This is a pleasant 78 year old gentleman with history of diabetes, hyperlipidemia, hypertension, no prior history of coronary artery disease, he has history of Alpha I antitrypsin deficiency, chronic hypoxic respiratory failure related to advanced Deyanira PVD, prior history of smoking when the patient was in his 20s. He presents to the hospital on this occasion with a fullness sensation in his mid chest area, he states it felt like he was bloated in his chest, he's been experiencing these symptoms off and on for the past 2 days, thinking it was more a gas pain. Patient states he has also noticed significant swelling in his bilateral lower extremities which has been consistently getting worse over the past one to 2 weeks. Patient is always short of breath, he states he does not feel any more short of breath than his usual. Patient also states that within the past couple of weeks he has noticed significant weakness in his bilateral legs, especially in the thighs for which she states it's hard to stand up but sometimes because he is so weak. He also states that there was 1 morning found on the floor next to his bed, he doesn't recall how he got there, it appears it may have been a syncopal episode but the patient also states that he takes Ambien for sleep. Chest x-ray was performed in the emergency room and showed cardiomegaly and interstitial changes with possibility of CHF and pulmonary vascular congestion, a focal paced V in the right midlung. His EKG showed a normal sinus rhythm with a right bundle branch block pattern and left axis deviation. Nonspecific ST-T wave changes. CTA of the chest was performed which did not reveal evidence for pulmonary embolism, there was a left lower lobe pulmonary nodule noted. A venous duplex study was performed which revealed a nearly occlusive DVT in the left popliteal vein, no evidence of DVT in the right leg. An echocardiogram with Doppler study was performed which revealed an ejection fraction of 55-60%, moderate aortic stenosis, moderate mitral regurg, moderate prolapse of the posterior mitral valve leaflet, moderate pulmonary hypertension, RVSP 57.8, no evidence of pericardial effusion. Blood pressure 128/80 with a heart rate in the 70s, 95% on 3 L of oxygen. White blood cell count 7.2, hemoglobin 15.7, platelet count 165. D-dimer 7.8. Sodium 140, potassium 4.3, BUN 34 and creatinine 1.3 on admission, 24 and 1.0 this morning. Magnesium 2.0. Troponins 0.055, 0.054, 0.041. BNP level 1510. Cholesterol 170, LDL 95, HDL 37, triglycerides 189. At the time of my examination this morning, patient states he feels exhausted, his breathing is as it usually is for him according to the patient, he does appear short of breath with talking. Past Medical History Past Medical History: COPD, Diabetes Mellitus, Hyperlipidemia, Hypertension Additional Past Medical History / Comment(s): [facility] VISIT ON 05/25/19 FOR URINARY RETENTION, HAS HAD URINARY CATHETER SINCE. Lung disorder: Alpha 1 antitrypsin deficiancy, uses O2 via NC prn @ 2L, recieves weekly infusions via port BY VISITING NURSE. Leg edema. HX: RENAL STONES History of Any Multi-Drug Resistant Organisms: MRSA Date of last positivie culture/infection: unsure 5-8 yrs ago MDRO Source:: umbilical incision Past Surgical History: Hernia Repair Additional Past Surgical History / Comment(s): BILATERAL CATARACTS. Umb. hernia repair. Eyelid sx. PORT-A-CATH. Past Anesthesia/Blood Transfusion Reactions: No Reported Reaction Additional Past Anesthesia/Blood Transfusion Reaction / Comment(s): NO GENERAL ANESTHESIA DUE TO LUNG DISORDER. Past Psychological History: No Psychological Hx Reported Smoking Status: Former smoker Past Alcohol Use History: Occasional Additional Past Alcohol Use History / Comment(s): smoked for a few years in his 20's, 1 pack per week Past Drug Use History: None Reported - Past Family History Mother Family Medical History: Cancer Additional Family Medical History / Comment(s): lung Sister(s) Family Medical History: Cancer Additional Family Medical History / Comment(s): 1 sister lung ca, one sister pneumonia Father Family Medical History: No Reported History Additional Family Medical History / Comment(s): Patient has no kids. Only step kids Medications and Allergies Home Medications Medication Instructions Recorded Confirmed Type Albuterol Sulfate [Proair Hfa] 1 - 2 puff INHALATION RT-Q6H PRN 05/05/19 07/23/19 History Atenolol 25 mg PO BID 05/05/19 07/23/19 History Atorvastatin [Lipitor] 10 mg PO Q48H 05/05/19 07/23/19 History Budesonide/Formoterol Fumarate 2 puff INHALATION RT-BID 05/05/19 07/23/19 History [Symbicort 160-4.5 Mcg Inhaler] Calcium Carbonate/Vitamin D3 1 tab PO DAILY 05/05/19 07/23/19 History [Calcium 600-Vit D3 400 Caplet] Melatonin 5 mg PO HS 05/05/19 07/23/19 History Multivitamins, Thera [Multivitamin 1 tab PO DAILY 05/05/19 07/23/19 History (formulary)] Crozet-3 Fatty Acids/Fish Oil [Fish 1 cap PO DAILY 05/05/19 07/23/19 History Oil 1,000 mg Softgel] Pilocarpine HCl 5 mg PO TID PRN 05/05/19 07/23/19 History Potassium Chloride [Klor-Con 10] 10 meq PO BID 05/05/19 07/23/19 History Tamsulosin [Flomax] 0.4 mg PO BID 05/05/19 07/23/19 History Ubidecarenone [Co Q-10] 100 mg PO DAILY 05/05/19 07/23/19 History Zemaira 1 applic IV TU 05/05/19 07/23/19 History Zolpidem [Ambien] 10 mg PO HS 05/05/19 07/23/19 History cloNIDine HCL [Catapres] 0.3 mg PO BID 05/05/19 07/23/19 History sitaGLIPtin PHOS/metFORMIN HCL 1 tab PO BID 05/05/19 07/23/19 History [Janumet 50-500 mg Tablet] Spironolactone 25 mg PO DAILY 05/25/19 07/23/19 History Furosemide [Lasix] 40 mg PO DAILY 07/23/19 07/23/19 History Allergies Allergy/AdvReac Type Severity Reaction Status Date / Time lisinopril AdvReac "picky Verified 07/23/19 10:25 throat"/Cough nifedipine [From Procardia] AdvReac Cough Verified 07/23/19 10:25 Physical Exam Vitals: Vital Signs Temp Pulse Pulse Resp BP BP Pulse Ox 07/24/19 04:00 71 18 128/80 95 07/24/19 00:00 72 18 127/72 95 07/23/19 20:00 98.4 F 18 119/65 91 L 07/23/19 16:44 98.3 F 79 16 104/63 92 L 07/23/19 14:30 98.3 F 79 16 104/63 92 L 07/23/19 13:44 98.3 F 07/23/19 13:32 81 18 117/72 95 07/23/19 13:28 92 L 07/23/19 13:10 80 18 96/67 89 L 07/23/19 09:16 97.2 F L 88 20 128/81 90 L Intake and Output 07/23/19 07/24/19 07/24/19 22:59 06:59 14:59 Intake Total 294.457 98.4 Output Total 400 650 Balance -105.543 -650 98.4 Intake: Intake, IV Titration 72.457 98.4 Amount Heparin Sod,Pork in 0.45% 72.457 98.4 NaCl 25,000 unit In 0.45 % NaCl 1 250ml.bag @ 18 UNITS/KG/HR 12.737 mls/hr IV .[id number] [facility] Rx#: [id number] Oral 222 Output: Urine 400 650 Other: Voiding Method Urinal Urinal # Voids 1 Weight 58.287 kg HEAD: Normocephalic/atraumatic. EYES: Normal reaction of pupils, equal size. Conjunctiva pink, sclera white. NOSE: Clear with pink turbinates. THROAT: No erythema or exudates. NECK: No masses, elevated JVP, no thyroid enlargement, no adenopathy. CHEST: No chest wall deformity. Symmetrical expansion. LUNGS: Equal air entry with a few scattered crackles, no wheeze, rhonchi or dull ness. Initially air entry to the bases CVS: Regular rate and rhythm, normal S1 and S2, no gallops, no rubs, systolic murmur ABDOMEN: Soft, nontender. No hepatosplenomegaly, normal bowel sounds, no g uarding or rigidity. EXTREMITIES: No clubbing, chronic lower extremity edema 1+, and changes of ch ronic venous stasis present to bilateral lower extremities, no cyanosis, 2+ pulses and upper and lower extremities. MUSCULOSKELETAL: Muscle strength and tone normal. SPINE: No scoliosis or deformity SKIN: No rashes CENTRAL NERVOUS SYSTEM: Alert and oriented -3. No focal deficits, tone is normal in all 4 extremities. PSYCHIATRIC: Alert and oriented -3. Appropriate affect. Intact judgment and i nsight. Results 07/24/19 05:41 07/24/19 05:41 Cardiac Enzymes 07/23/19 07/23/19 07/23/19 Range/Units 09:25 09:25 15:10 AST 94 H (17-59) U/L Troponin I 0.055 H* 0.054 H* (0.000-0.034) ng/mL 07/23/19 Range/Units 21:11 AST (17-59) U/L Troponin I 0.041 H* (0.000-0.034) ng/mL Coagulation 07/23/19 07/23/19 07/24/19 Range/Units 09:25 18:54 01:33 PT 11.5 (9.0-12.0) sec APTT 25.5 42.9 H 49.6 H (22.0-30.0) sec 07/24/19 Range/Units 05:41 PT (9.0-12.0) sec APTT 48.5 H (22.0-30.0) sec Lipids 07/23/19 Range/Units 09:25 Triglycerides 189 H (<150) mg/dL Cholesterol 170 (<200) mg/dL HDL Cholesterol 37 L (40-60) mg/dL CBC 07/23/19 07/24/19 Range/Units 09:25 05:41 WBC 7.5 7.2 (3.8-10.6) k/uL RBC 5.77 5.21 (4.30-5.90) m/uL Hgb 17.4 15.7 (13.0-17.5) gm/dL Hct 52.3 47.4 (39.0-53.0) % Plt Count 175 165 (150-450) k/uL Comprehensive Metabolic Panel 07/23/19 07/24/19 Range/Units 09:25 05:41 Sodium 138 140 (137-145) mmol/L Potassium 4.6 4.3 (3.5-5.1) mmol/L Chloride 97 L 106 (98-107) mmol/L Carbon Dioxide 28 29 (22-30) mmol/L BUN 34 H 24 H (9-20) mg/dL Creatinine 1.39 H 1.00 (0.66-1.25) mg/dL Glucose 185 H 145 H (74-99) mg/dL Calcium 9.2 8.4 (8.4-10.2) mg/dL AST 94 H (17-59) U/L ALT 66 (21-72) U/L Alkaline Phosphatase 79 (38-126) U/L Total Protein 8.0 (6.3-8.2) g/dL Albumin 4.1 (3.5-5.0) g/dL Current Medications Generic Name Dose Route Start Last Admin Trade Name Freq PRN Reason Stop Dose Admin Albuterol Sulfate 2.5 mg 07/23/19 14:00 Ventolin Nebulized INHALATION RT-Q6H PRN Shortness Of Breath Aspirin 325 mg 07/24/19 09:00 Aspirin PO DAILY ROSSY Atenolol 25 mg 07/23/19 21:00 07/23/19 21:06 Tenormin PO 25 mg BID ROSSY Administration Atorvastatin Calcium 10 mg 07/23/19 21:00 07/23/19 21:06 Lipitor PO 10 mg Q48H ROSSY Administration Budesonide/Formoterol Fumarate 2 puff 07/23/19 20:00 07/24/19 07:15 Symbicort 160-4.5 Mcg Inhaler INHALATION 2 puff RT-BID ROSSY Administration Calcium Carbonate 1 each 07/24/19 09:00 Oscal 500+D PO DAILY ROSSY Clonidine 0.3 mg 07/23/19 21:00 07/23/19 21:05 Catapres PO 0.3 mg BID ROSSY Administration Furosemide 40 mg 07/24/19 09:00 Lasix PO DAILY ROSSY Heparin Sodium (Porcine) 0 unit 07/23/19 11:13 Heparin IV PER PROTOCOL PRN Low PTT Protocol Heparin Sodium/Sodium Chloride 250 mls @ 12.737 mls/hr 07/23/19 11:15 07/24/19 07:02 25,000 unit/ Sodium Chloride IV 14 units/kg/hr .[id number] ROSSY 9.906 mls/hr Administration Protocol 18 UNITS/KG/HR Linagliptin 5 mg 07/23/19 21:00 07/23/19 21:06 Tradjenta PO 5 mg HS ROSSY Administration Melatonin 5 mg 07/23/19 21:00 07/23/19 21:02 Melatonin PO Not Given HS ORSSY Metformin HCl 500 mg 07/23/19 21:00 07/23/19 21:06 Glucophage PO 500 mg BID ROSSY Administration Multivitamins 1 each 07/24/19 09:00 Theragran PO DAILY ROSSY Nitroglycerin 0.4 mg 07/23/19 13:11 Nitrostat SUBLINGUAL Q5M PRN Chest Pain Potassium Chloride 10 meq 07/23/19 21:00 07/23/19 21:06 K-Dur 10 PO 10 meq BID ROSSY Administration Spironolactone 25 mg 07/24/19 09:00 Aldactone PO DAILY ROSSY Tamsulosin HCl 0.4 mg 07/23/19 21:00 07/23/19 21:06 Flomax PO 0.4 mg BID ROSSY Administration Zolpidem Tartrate 10 mg 07/23/19 21:00 07/23/19 21:02 Ambien PO Not Given HS ROSSY Intake and Output 07/23/19 07/24/19 07/24/19 22:59 06:59 14:59 Intake Total 294.457 98.4 Output Total 400 650 Balance -105.543 -650 98.4 Intake: Intake, IV Titration 72.457 98.4 Amount Heparin Sod,Pork in 0.45% 72.457 98.4 NaCl 25,000 unit In 0.45 % NaCl 1 250ml.bag @ 18 UNITS/KG/HR 12.737 mls/hr IV .[id number] [facility] Rx#: [id number] Oral 222 Output: Urine 400 650 Other: Voiding Method Urinal Urinal # Voids 1 Weight 58.287 kg 07/24/19 05:41 07/24/19 05:41 EKG Interpretations (text) EKG shows normal sinus rhythm with left axis deviation, right bundle branch block pattern and nonspecific ST-T wave changes Assessment and Plan Plan: Assessment and plan: #1. Diastolic congestive heart failure acute on chronic #2. Left popliteal DVT #3. Chest pressure and fullness, some atypical features for acute coronary syndrome, troponins 0.05, 0.05, 0.04. EKG shows a normal sinus rhythm with right bundle branch block pattern and nonspecific ST-T wave changes. Echo shows normal LV function, moderate aortic stenosis, moderate mitral regurg, moderate prolapse of the posterior mitral valve leaflet, moderate pulmonary hypertension. #4. Left lower lobe pulmonary nodule measuring 1 cm possibly related to scarring, will be followed on outpatient basis #5. History of severe COPD, known history of alpha-1 antitrypsin deficiency on Zemaira infusions #6. Recent history of left inguinal hernia repair in June 2019 #7. Acute kidney injury #8. Chronic edema #9. Diabetes mellitus #10. Hypertension #11. Hyperlipidemia #12. 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 Further recommendations to follow. DNP note has been reviewed, I agree with a documented findings and plan of care. Patient was seen and examined.
[2019-07-24] MEDS: metFORMIN 500 MG TAB PO SCH (09:34)
[2019-07-24] MEDS: cloNIDine HCL 0.1 MG TAB PO SCH ×2 (09:34→21:39)
[2019-07-24] MEDS: ATENOLOL 25 MG TAB PO SCH ×2 (09:34→21:40)
[2019-07-24] MEDS: POTASSIUM CHLORIDE ER 10 MEQ TAB.ER.PRT PO SCH ×2 (09:34→21:40)
[2019-07-24] MEDS: CALCIUM CARB-VIT D 500MG-200UN 1 EACH TAB PO SCH (09:34)
[2019-07-24] MEDS: SPIRONOLACTONE 25 MG TAB PO SCH (09:34)
[2019-07-24] MEDS: TAMSULOSIN 0.4 MG CAP.ER.24H PO SCH ×2 (09:34→21:39)
[2019-07-24] MEDS: FUROSEMIDE 40 MG TAB PO SCH ×2 (09:34→09:51)
[2019-07-24] MEDS: MULTIVITAMINS, THERA 1 EACH TAB PO SCH (09:34)
[2019-07-24] MEDS ORDERED: IPRATROPIUM-ALBUTEROL 3 ML NEB INHALATION PRN (09:36)
--- NOTE | 2019-07-24 11:02 | P.PN ---
Subjective Progress Note Date: 07/24/19 Principal diagnosis: Chest pain, lower extremity edema This is a 78-year-old white male patient with history of alpha-1 antitrypsin deficiency, chronic hypoxic respiratory failure related to advanced COPD, who follows with Dr. Abdul in the pulmonary clinic who presents to the emergency department on 07/23/2019 with complaints of chest pressure 2 days. He stated this sensation was similar to bloating in the chest area in the anterior part. Thought it was gas pain. He was taking aspirin with no relief. Patient is on Zemaira infusions for his alpha 1 antitrypsin deficiency, and the combination of Symbicort, and Pro-air. Patient recently had left inguinal hernia repair in June 2019. His other medical history includes diabetes mellitus, hypertension, hyperlipidemia, chronic lower extremity edema, patient is a former smoker back in his 20s, for short period of time. Denied any fever, denied any cough, but did admit to some subjective chills. States his legs are chronically swollen on a regular basis, denied any increased swelling pain or tenderness in his calves. Chest x-ray in the ER showed cardiomegaly and interstitial changes with possibility of CHF and pulmonary vascular congestion, and more focal opacity at the right midlung. CBC was all within normal limits, d-dimer did come back elevated at 7.8, with a troponin leak of 0.055. CT angios chest showed no evidence of pulmonary embolism, but did show left lower lobe pulmonary nodule measuring 1 cm with scattered areas of linear scarring and/or atelectasis. And right axillary adenopathy measuring up to 1.7 cm. Patient has been started on heparin infusion, and were consulted for evaluation of the left lower lobe pulmonary nodule and patient's history of COPD On 07/24/2019 patient is seen in follow-up on selective care unit, he is awake and alert, he states he is breathing is at his baseline however he is very fatigued, and does not have the energy to do anything. Denies any increased cough or congestion, no chest pain, no sensation of bloating in his chest today. Apparently on 2 L- 3 L of oxygen, and his pulse ox is 95%, his home dose Lasix has been discontinued patient has been started on IV Lasix per cardiology, his echocardiogram has been noted showing preserved left ventricular systolic function with an EF of 55-60%, mild aortic regurgitation, moderate aortic stenosis, moderate mitral regurgitation and moderate prolapse of the posterior mitral valve leaflet, mild tricuspid regurg, and moderate pulmonary hypertension with right-sided pressures of 57.8 mmHg. His troponins showed 0.055, 0.054, and 0.041. ProBNP was elevated at 1510, patient remains on heparin infusion for left lower extremity DVT, prescription was sent to the pharmacy for Eliquis to check patient's eligibility. Objective - Vital Signs Vital signs: Vital Signs Temp 98.4 F 07/23/19 20:00 Pulse 71 07/24/19 04:00 Resp 18 07/24/19 04:00 BP 128/80 07/24/19 04:00 Pulse Ox 95 07/24/19 04:00 Intake & Output 07/23/19 07/24/19 07/24/19 18:59 06:59 18:59 Intake Total 222 72.457 98.4 Output Total 400 650 250 Balance -178 -577.543 -151.6 Weight 70.76 kg 58.287 kg Intake: Intake, IV Titration 72.457 98.4 Amount Heparin Sod,Pork in 0.45% 72.457 98.4 NaCl 25,000 unit In 0.45 % NaCl 1 250ml.bag @ 18 UNITS/KG/HR 12.737 mls/hr IV .[id number] [facility] Rx#: [id number] Oral 222 Output: Urine 400 650 250 Other: Voiding Method Urinal # Voids 1 # Bowel Movements 1 - Exam GENERAL EXAM: Alert, active, pleasant 78-year-old white male, on 2 L of oxygen and the pulse ox of 95% in no apparent distress. HEAD: Normocephalic/atraumatic. EYES: Normal reaction of pupils, equal size. Conjunctiva pink, sclera white. NOSE: Clear with pink turbinates. THROAT: No erythema or exudates. NECK: No masses, no JVD, no thyroid enlargement, no adenopathy. CHEST: No chest wall deformity. Symmetrical expansion. LUNGS: Equal air entry with a few scattered crackles, no wheeze, rhonchi or dullness. CVS: Regular rate and rhythm, normal S1 and S2, no gallops, no rubs, soft systolic murmur on the left at the fourth intercostal space midclavicular line and second right intercostal space midclavicular line ABDOMEN: Soft, nontender. No hepatosplenomegaly, normal bowel sounds, no guardi ng or rigidity. EXTREMITIES: No clubbing, chronic lower extremity edema 1+, and changes of chronic venous stasis present to bilateral lower extremities, no cyanosis, 2+ pulses and upper and lower extremities. MUSCULOSKELETAL: Muscle strength and tone normal. SPINE: No scoliosis or deformity SKIN: No rashes CENTRAL NERVOUS SYSTEM: Alert and oriented -3. No focal deficits, tone is normal in all 4 extremities. PSYCHIATRIC: Alert and oriented -3. Appropriate affect. Intact judgment and insight. - Labs CBC & Chem 7: 07/24/19 05:41 07/24/19 05:41 Labs: Abnormal Lab Results - Last 24 Hours (Table) 07/23/19 07/23/19 07/23/19 Range/Units 09:25 09:25 15:10 APTT (22.0-30.0) sec D-Dimer 7.80 H (<0.60) mg/L FEU BUN (9-20) mg/dL Glucose (74-99) mg/dL POC Glucose (mg/dL) (75-99) mg/dL Troponin I 0.054 H* (0.000-0.034) ng/mL Triglycerides 189 H (<150) mg/dL HDL Cholesterol 37 L (40-60) mg/dL 07/23/19 07/23/19 07/23/19 Range/Units 18:54 21:02 21:11 APTT 42.9 H (22.0-30.0) sec D-Dimer (<0.60) mg/L FEU BUN (9-20) mg/dL Glucose (74-99) mg/dL POC Glucose (mg/dL) 184 H (75-99) mg/dL Troponin I 0.041 H* (0.000-0.034) ng/mL Triglycerides (<150) mg/dL HDL Cholesterol (40-60) mg/dL 07/24/19 07/24/19 07/24/19 Range/Units 01:33 05:41 05:41 APTT 49.6 H 48.5 H (22.0-30.0) sec D-Dimer (<0.60) mg/L FEU BUN 24 H (9-20) mg/dL Glucose 145 H (74-99) mg/dL POC Glucose (mg/dL) (75-99) mg/dL Troponin I (0.000-0.034) ng/mL Triglycerides (<150) mg/dL HDL Cholesterol (40-60) mg/dL 07/24/19 Range/Units 06:27 APTT (22.0-30.0) sec D-Dimer (<0.60) mg/L FEU BUN (9-20) mg/dL Glucose (74-99) mg/dL POC Glucose (mg/dL) 149 H (75-99) mg/dL Troponin I (0.000-0.034) ng/mL Triglycerides (<150) mg/dL HDL Cholesterol (40-60) mg/dL Assessment and Plan Plan: Assessment: #1. Acute exacerbation of congestive heart failure, with preserved ventricular systolic function. Chest x-ray showed pulmonary vascular congestion, and interstitial edema #2. Valvular heart disease, with moderate aortic stenosis, moderate mitral regurgitation, moderate prolapse of the posterior mitral valve leaflet, and moderate pulmonary hypertension with right sided pressures of 57.8 mmHg #3. Left popliteal DVT #4. Chronic lower extremity swelling #5. Left lower lobe pulmonary nodule measuring 1 cm possibly related to scarring, will be followed on outpatient basis #6. History of severe COPD, known history of alpha-1 antitrypsin deficiency on Zemaira infusions #7. Recent history of left inguinal hernia repair in June 2019 #8. Acute kidney injury #9. Positive troponin #10. Diabetes mellitus #11. Hypertension #12. Hyperlipidemia #13. Remote and brief history of smoking back in his 20s #14. History of post polio syndrome Plan: Continue diuretics per cardiology recommendations, echocardiogram results have been noted, chest x-ray shows persistence of interstitial prominence and pulmonary vascular congestion. Clinically patient is complaining of being very fatigued, and not being able to tolerate much activity, but denies any increased shortness of breath. Check eligibility for Xarelto or Eliquis. Hemodynamically patient remains stable, continue with Symbicort, and nebulized treatments on an as-needed basis, we'll to follow I performed a history & physical examination of the patient and discussed their management with my nurse practitioner, Mami Payton. I reviewed the nurse practitioner's note and agree with the documented findings and plan of care. Lung sounds are positive for diminished breath sounds. The findings and the impression was discussed with the patient. I attest to the documentation by the nurse practitioner. Time with Patient: Less than 30
[2019-07-24] MEDS: FUROSEMIDE 10 MG/ML 4 ML VIAL IV SCH ×2 (11:03→21:40)
[2019-07-24] MEDS: LOSARTAN 25 MG TAB PO SCH (11:03)
--- NOTE | 2019-07-24 11:20 | XR ---
EXAMINATION TYPE: XR chest 1V portable DATE OF EXAM: 07/24/2019 COMPARISON: 07/23/2019 HISTORY: Shortness of breath TECHNIQUE: Single frontal view of the chest is obtained. FINDINGS: There is improved aeration of the right midlung. Left basilar atelectasis and trace right minor intrafissural fluid are stable. Improved pulmonary vascular congestion. Cardia mediastinal silh ouette is mildly enlarged and rotated secondary to patient positioning. Right-sided Mediport is again noted. Diffuse osseous demineralization is seen. The lung apices are obscured by the patient's chin. IMPRESSION: Improved aeration the lungs with persistent left basilar atelectasis and trace intrafiss ural fluid.
[2019-07-24] MEDS: IPRATROPIUM-ALBUTEROL 3 ML NEB INHALATION SCH ×3 (12:11→19:45)
[2019-07-24 12:17] LABS: Glucose,Whole Blood 196 mg/dL (75-99)
[2019-07-24 16:36] LABS: Glucose,Whole Blood 188 mg/dL (75-99)
[2019-07-24 20:30] LABS: Glucose,Whole Blood 188 mg/dL (75-99)
[2019-07-24] MEDS: INSULIN ASPART (NovoLOG) 100 UNIT/ML VIAL SQ SCH (21:20)
[2019-07-24] MEDS: LINAGLIPTIN 5 MG TABLET PO SCH (21:40)
[2019-07-25] MEDS: ZOLPIDEM 10 MG TAB PO SCH ×2 (01:05→20:32)
[2019-07-25] MEDS: MELATONIN 5 MG TABLET PO SCH ×2 (01:05→20:32)
[2019-07-25 06:13] LABS: Glucose,Whole Blood 163 mg/dL (75-99)
[2019-07-25 06:37] LABS: HCT 43.6 % (39.0-53.0); HGB 15.3 gm/dL (13.0-17.5); MCH 31.4 pg (25.0-35.0); MCHC 35.1 g/dL (31.0-37.0); MCV 89.3 fL (80.0-100.0); Mean Platelet Volume 6.2; Platelet Count 186 k/uL (150-450); RBC 4.88 m/uL (4.30-5.90); RDW 13.2 % (11.5-15.5); WBC 7.4 k/uL (3.8-10.6)
[2019-07-25 06:52] LABS: Calcium 8.8 mg/dL (8.4-10.2); Potassium 3.9 mmol/L (3.5-5.1)
[2019-07-25] MEDS: INSULIN ASPART (NovoLOG) 100 UNIT/ML VIAL SQ SCH ×4 (06:56→22:20)
[2019-07-25] MEDS: IPRATROPIUM-ALBUTEROL 3 ML NEB INHALATION SCH ×4 (08:28→20:01)
[2019-07-25] MEDS: SYMBICORT 160-4.5 MCG INHALER INHALATION SCH ×2 (08:28→20:00)
[2019-07-25] MEDS ORDERED: LISINOPRIL 2.5 MG TAB PO SCH (09:00)
[2019-07-25] MEDS: ASPIRIN 81 MG PO SCH (09:40)
[2019-07-25] MEDS: LOSARTAN 25 MG TAB PO SCH (09:40)
[2019-07-25] MEDS: FUROSEMIDE 10 MG/ML 4 ML VIAL IV SCH ×2 (09:41→20:31)
[2019-07-25] MEDS: POTASSIUM CHLORIDE ER 10 MEQ TAB.ER.PRT PO SCH ×2 (09:41→20:31)
[2019-07-25] MEDS: MULTIVITAMINS, THERA 1 EACH TAB PO SCH (09:41)
[2019-07-25] MEDS: CALCIUM CARB-VIT D 500MG-200UN 1 EACH TAB PO SCH (09:41)
[2019-07-25] MEDS: ATENOLOL 25 MG TAB PO SCH ×2 (09:41→20:31)
[2019-07-25] MEDS: cloNIDine HCL 0.1 MG TAB PO SCH ×3 (09:41→20:30)
[2019-07-25] MEDS: SPIRONOLACTONE 25 MG TAB PO SCH (09:41)
[2019-07-25] MEDS: TAMSULOSIN 0.4 MG CAP.ER.24H PO SCH ×2 (09:41→20:31)
[2019-07-25 12:04] LABS: Glucose,Whole Blood 168 mg/dL (75-99)
--- NOTE | 2019-07-25 12:18 | P.PN ---
Subjective Progress Note Date: 07/25/19 This is a 78-year-old gentleman with history of hypertension, diabetes who was admitted to the hospital with diastolic congestive heart failure and also evidence of left popliteal DVT. Patient is on heparin. He seemed to be comfortable at rest. Doesn't appear to be in acute distress. Patient is currently in IV Lasix and also [place] inhibitor. He is tolerating the medication well. Creatinine is 1.1. Patient will stay on the current medical therapy. Patient may go on oral anticoagulant agent. Objective - Vital Signs Vital signs: Vital Signs Temp 98.0 F 07/25/19 08:00 Pulse 80 07/25/19 11:43 Resp 18 07/25/19 08:00 BP 107/70 07/25/19 08:00 Pulse Ox 95 07/25/19 08:28 Intake & Output 07/24/19 07/25/19 07/25/19 18:59 06:59 18:59 Intake Total 433.663 240 Output Total 650 Balance -216.337 240 Weight 69.8 kg Intake: Intake, IV Titration 193.663 Amount Heparin Sod,Pork in 0.45% 193.663 NaCl 25,000 unit In 0.45 % NaCl 1 250ml.bag @ 18 UNITS/KG/HR 12.737 mls/hr IV .[id number] [facility] Rx#: [id number] Oral 240 240 Output: Urine 650 Other: Voiding Method Urinal Urinal Urinal # Voids 1 1 2 # Bowel Movements 1 - Exam GENERAL EXAM: Patient is alert and oriented and doesn't appear to be in any acute distress HEENT: Normocephalic. Normal reaction of pupils, equal size, normal range of extraocular motion. No erythema or exudates in the throat. NECK: No masses, no nuchal rigidity. CHEST: No chest wall deformity. LUNGS: Equal air entry with no crackles or wheeze. HEART: S1 and S2 normal with no audible mumurs or gallops. Regular rhythm, femorals equal on both sides.. ABDOMEN: No hepatosplenomegaly, normal bowel sounds, no guarding or rigidity. SKIN: No rashes CENTRAL NERVOUS SYSTEM: No focal deficits. EXTREMITIES: Resolving edema - Labs CBC & Chem 7: 07/25/19 06:04 07/25/19 06:04 Labs: Abnormal Lab Results - Last 24 Hours (Table) 07/24/19 07/24/19 07/24/19 Range/Units 12:16 16:33 20:28 APTT (22.0-30.0) sec Carbon Dioxide (22-30) mmol/L BUN (9-20) mg/dL Glucose (74-99) mg/dL POC Glucose (mg/dL) 196 H 188 H 188 H (75-99) mg/dL 07/25/19 07/25/19 07/25/19 Range/Units 06:04 06:04 06:11 APTT 55.2 H (22.0-30.0) sec Carbon Dioxide 32 H (22-30) mmol/L BUN 23 H (9-20) mg/dL Glucose 158 H (74-99) mg/dL POC Glucose (mg/dL) 163 H (75-99) mg/dL 07/25/19 Range/Units 11:47 APTT (22.0-30.0) sec Carbon Dioxide (22-30) mmol/L BUN (9-20) mg/dL Glucose (74-99) mg/dL POC Glucose (mg/dL) 168 H (75-99) mg/dL Assessment and Plan (1) Acute diastolic CHF (congestive heart failure) Current Visit: Yes Status: Acute Code(s): I50.31 - ACUTE DIASTOLIC (CONGESTIVE) HEART FAILURE SNOMED Code(s): 995977425 (2) DVT (deep venous thrombosis) Current Visit: Yes Status: Acute Code(s): I82.409 - ACUTE EMBOLISM AND THOMBOS UNSP DEEP VN UNSP LOWER EXTREMITY SNOMED Code(s): 752943181 Plan: Continue current medical therapy. May switch to by mouth diuretics
[2019-07-25] MEDS: APIXABAN 5 MG TAB PO SCH ×2 (12:23→20:31)
--- NOTE | 2019-07-25 14:14 | P.HPIM ---
History of Present Illness H&P Date: 07/23/19 Chief Complaint: Increased shortness breath/NSTEMI This is 78 her old male one of Dr. Ledesma with a previous medical history significant for chronic respiratory failure due to COPD as well as alpha 1 and Tetracyn deficiency currently on replacement therapy in the form of Zemeira has been following with Dr. Abdul and regular basis and he was cleared prior to the surgical intervention, hypertension and hypertensive cardiovascular disease, hyperlipidemia, diabetes mellitus type 2, nephrolithiasis, patient underwent left incarcerated inguinal hernia without any complications about 3 weeks ago and patient was discharged home. Patient has been feeling a bit weaker over the last few days with increased swelling in both lower extremities an increased pain in the left leg and weakness in both lower extremities and he has been sitting around not doing much last night developed to have a left-sided chest pain associated with significant shortness breath he has been using his oxygen more often he ended up coming to the emergency department at [facility] for evaluation his troponin was slightly elevated his EKG showed normal sinus rhythm without ischemic changes, it does show any underlying right bundle branch block. 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 Abdul. Review of Systems Constitutional: Reports anorexia, Reports weakness, Reports weight gain, Denies chronic headaches, Denies chronic pain, Denies lethargy, Denies malaise, Denies weight loss Eyes: denies blurred vision, denies bulging eye, denies decreased vision Ears: deny: decreased hearing Ears, nose, mouth and throat: Denies dysphagia, Denies neck lump, Denies swelling in throat, Denies sore throat Cardiovascular: Reports chest pain, Reports decreased exercise tolerance, Reports dyspnea on exertion, Reports edema, Reports shortness of breath, Denies lightheadedness, Denies rapid heart beat, Denies syncope Respiratory: Reports home oxygen, Denies congestion, Denies cough, Denies cough with sputum, Denies respiratory infections, Denies sleep apnea, Denies snoring, Denies wheezing Gastrointestinal: Denies abdominal pain, Denies bloating, Denies BRBPR, Denies excessive gas, Denies loss of appetite, Denies melena, Denies nausea, Denies vomiting Genitourinary: Reports nocturia, Denies dysuria Musculoskeletal: Reports gait dysfunction Musculoskeletal: bilateral: ankle swelling, foot swelling, absent: ankle pain, ankle stiffness, elbow pain, elbow stiffness, elbow swelling, foot pain, foot stiffness, hand pain, hand stiffness, hand swelling, hip pain, hip stiffness, hip swelling, knee pain, knee stiffness, knee swelling, shoulder pain, shoulder stiffness, shoulder swelling, wrist pain, wrist stiffness, wrist swelling Integumentary: Denies pruritus, Denies rash Neurological: Reports gait dysfunction, Reports weakness, Denies numbness Psychiatric: Denies anxiety, Denies depression Endocrine: Denies fatigue, Denies weight change Past Medical History Past Medical History: COPD, Diabetes Mellitus, Hyperlipidemia, Hypertension Additional Past Medical History / Comment(s): [facility] VISIT ON 05/25/19 FOR URINARY RETENTION, HAS HAD URINARY CATHETER SINCE. Lung disorder: Alpha 1 antitrypsin deficiancy, uses O2 via NC prn @ 2L, recieves weekly infusions via port BY VISITING NURSE. Leg edema. HX: RENAL STONES History of Any Multi-Drug Resistant Organisms: MRSA Date of last positivie culture/infection: unsure 5-8 yrs ago MDRO Source:: umbilical incision Past Surgical History: Hernia Repair Additional Past Surgical History / Comment(s): BILATERAL CATARACTS. Umb. hernia repair. Eyelid sx. PORT-A-CATH. Past Anesthesia/Blood Transfusion Reactions: No Reported Reaction Additional Past Anesthesia/Blood Transfusion Reaction / Comment(s): NO GENERAL ANESTHESIA DUE TO LUNG DISORDER. Past Psychological History: No Psychological Hx Reported Smoking Status: Former smoker Past Alcohol Use History: Occasional Past Drug Use History: None Reported - Past Family History Mother Family Medical History: Cancer (Mother at age of 65 from lung cancer.) Additional Family Medical History / Comment(s): lung Sister(s) Family Medical History: Cancer (Patient had 2 sisters an older sister who had lung cancer and possible alpha-1 antitrypsin deficiency the other one from pneumonia.) Additional Family Medical History / Comment(s): 1 sister lung ca, one sister pneumonia Father Family Medical History: No Reported History (Father at age of 85 from old age.) Additional Family Medical History / Comment(s): Patient has no kids. Only step kids Medications and Allergies Home Medications Medication Instructions Recorded Confirmed Type Albuterol Sulfate [Proair Hfa] 1 - 2 puff INHALATION RT-Q6H PRN 08/27/19 11/14/19 History Atenolol 25 mg PO BID 05/05/19 07/23/19 History Atorvastatin [Lipitor] 10 mg PO Q48H 05/05/19 07/23/19 History Budesonide/Formoterol Fumarate 2 puff INHALATION RT-BID 05/05/19 07/23/19 History [Symbicort 160-4.5 Mcg Inhaler] Calcium Carbonate/Vitamin D3 1 tab PO DAILY 05/05/19 07/23/19 History [Calcium 600-Vit D3 400 Caplet] Melatonin 5 mg PO HS 05/05/19 07/23/19 History Multivitamins, Thera [Multivitamin 1 tab PO DAILY 05/05/19 07/23/19 History (formulary)] [place]-3 Fatty Acids/Fish Oil [Fish 1 cap PO DAILY 05/05/19 07/23/19 History Oil 1,000 mg Softgel] Pilocarpine HCl 5 mg PO TID PRN 05/05/19 07/23/19 History Potassium Chloride [Klor-Con 10] 10 meq PO BID 05/05/19 07/23/19 History Tamsulosin [Flomax] 0.4 mg PO BID 05/05/19 07/23/19 History Ubidecarenone [Co Q-10] 100 mg PO DAILY 05/05/19 07/23/19 History Zemaira 1 applic IV TU 05/05/19 07/23/19 History Zolpidem [Ambien] 10 mg PO HS 05/05/19 07/23/19 History cloNIDine HCL [Catapres] 0.3 mg PO BID 05/05/19 07/23/19 History sitaGLIPtin PHOS/metFORMIN HCL 1 tab PO BID 05/05/19 07/23/19 History [Janumet 50-500 mg Tablet] Spironolactone 25 mg PO DAILY 05/25/19 07/23/19 History Furosemide [Lasix] 40 mg PO DAILY 07/23/19 07/23/19 History Allergies Allergy/AdvReac Type Severity Reaction Status Date / Time lisinopril AdvReac "picky Verified 07/23/19 10:25 throat"/Cough nifedipine [From Procardia] AdvReac Cough Verified 07/23/19 10:25 Physical Exam Vitals: Vital Signs Temp Pulse Resp BP Pulse Ox 07/23/19 09:16 97.2 F L 88 20 128/81 90 L Intake and Output 07/22/19 07/23/19 07/23/19 22:59 06:59 14:59 Other: Weight 70.76 kg - Constitutional General appearance: average body habitus, mild distress - EENT Eyes: anicteric sclerae, EOMI, PERRLA, no ptosis, no scleral icterus, normal appearance ENT: hearing grossly normal, NA/AT, normal oropharynx, no thrush Ears: bilateral: normal - Neck Neck: no lymphadenopathy, normal ROM, no rigidity, no stridor, no thyromegaly Carotids: bilateral: upstroke delayed Thyroid: bilateral: normal size - Respiratory Respiratory: bilateral: diminished, negative: dullness, rales, rhonchi, wheezing, prolonged expiration - Cardiovascular Rhythm: regular Heart sounds: normal: S1, S2 Abnormal Heart Sounds: systolic murmur, no rub, no S3 Gallop, no click - Gastrointestinal General gastrointestinal: no distended, soft, no splenomegaly, no tenderness, no umbilical hernia, no ventral hernia - Integumentary Integumentary: normal, normal turgor - Neurologic Neurologic: CNII-XII intact - Musculoskeletal Musculoskeletal: no gait normal, generalized weakness, strength equal bilaterally - Psychiatric Psychiatric: A&O x's 3, appropriate affect, intact judgment & insight Results CBC & Chem 7: 07/23/19 09:25 07/23/19 09:25 Labs: Abnormal Lab Results - Last 24 Hours (Table) 07/23/19 07/23/19 07/23/19 Range/Units 09:25 09:25 09:25 D-Dimer 7.80 H (<0.60) mg/L FEU Chloride 97 L (98-107) mmol/L BUN 34 H (9-20) mg/dL Creatinine 1.39 H (0.66-1.25) mg/dL Glucose 185 H (74-99) mg/dL AST 94 H (17-59) U/L Troponin I 0.055 H* (0.000-0.034) ng/mL Thrombosis Risk Factor Assmnt - DVT/VTE Prophylaxis DVT/VTE Prophylaxis: Pharmacologic Prophylaxis ordered, Mechanical Prophylaxis ordered Assessment and Plan Assessment: Assessment and plan: 1. Non-ST elevation [place]. Start the patient on heparin drip, aspirin 81 mg once every day, continue patient on atenolol 25 mg orally twice every day, Lipitor 10 mg orally once every day, cardiac enzy3 every 8 hours, echocardiogram, cardiology consultation . 2. Bilateral lower extremity edema. Continue heparin drip for now venous Doppler of both lower extremities. 3. Acute systolic heart failure. Continue patient on Lasix 40 mg IV push every 12 hours, potassium supplement, patient is ALLERGIC to lisinopril, continue atenolol 25 mg orally twice every day, low-salt diet, echocardiogram, input and output and daily weight. 4. Chronic respiratory failure due to COPD/alpha-1 antitrypsin deficiency. We will maintain the patient on oxygen 2 L nasal cannula, DuoNeb 3 mL nebulization 4 times every day, incentive spirometer, Symbicort 160/4.5 g 2 puffs inhalations twice every day. 5. Hypertension and hypertensive cardiovascular disease. Continue atenolol 25 mg orally twice every day. 6. Hyperlipidemia. Continue patient on Lipitor 10 mg orally daily. 7. Diabetes mellitus type 2. Continue patient on Janumet 50/500 one tablet orally twice every day, blood glucose level before each meal and bedtime. 8. Enlarged prostate. Continue Flomax 0.4 g orally once every day. 9. History of nephrolithiasis. Stable. 9. DVT prophylaxis. Currently on heparin drip. 10. GI prophylaxis. Protonix 40 mg orally once every day. 11. Admitted to inpatient. Estimate a length of stay 2 midnights per 12. Full code.
--- NOTE | 2019-07-25 15:51 | P.PN ---
Subjective Progress Note Date: 07/24/19 This is 78 her old male one of Dr. Ledesma with a previous medical history significant for chronic respiratory failure due to COPD as well as alpha 1 and Tetracyn deficiency currently on replacement therapy in the form of Zemeira has been following with Dr. Abdul and regular basis and he was cleared prior to the surgical intervention, hypertension and hypertensive cardiovascular disease, hyperlipidemia, diabetes mellitus type 2, nephrolithiasis, patient underwent left incarcerated inguinal hernia without any complications about 3 weeks ago and patient was discharged home. Patient has been feeling a bit weaker over the last few days with increased swelling in both lower extremities an increased pain in the left leg and weakness in both lower extremities and he has been sitting around not doing much last night developed to have a left-sided chest pain associated with significant shortness breath he has been using his oxygen more often he ended up coming to the emergency department at [facility] for evaluation his troponin was slightly elevated his EKG showed normal sinus rhythm without ischemic changes, it does show any underlying right bundle branch block. Patient will have venous ever before extremities and he will be started on heparin drip he'll be seen in consultation by cardiology as well as his safemaker Dr. Abdul. 07/24: I due to ALLERGY to lisinopril, losartan will be started 25 mg daily, patient denies any pain in his lower extremities. Edema is decreased. He is still on a heparin drip. Lasix is at 40 mg IV every 12 hours. CODE STATUS discussed with the patient and he would like to be no CODE STATUS which will be changed in the computer. Review of Systems Constitutional: Reports anorexia, Reports weakness, Reports weight gain, Denies chronic headaches, Denies chronic pain, Denies lethargy, Denies malaise, Denies weight loss Eyes: denies blurred vision, denies bulging eye, denies decreased vision Ears, nose, mouth and throat: Denies dysphagia, Denies neck lump, Denies swelling in throat, Denies sore throat Cardiovascular: Reports chest pain, Reports decreased exercise tolerance, Reports dyspnea on exertion, Reports edema, Reports shortness of breath, Denies lightheadedness, Denies rapid heart beat, Denies syncope Respiratory: Reports home oxygen, Denies congestion, Denies cough, Denies cough with sputum, Denies respiratory infections, Denies sleep apnea, Denies snoring, Denies wheezing Gastrointestinal: Denies abdominal pain, Denies bloating, Denies BRBPR, Denies excessive gas, Denies loss of appetite, Denies melena, Denies nausea, Denies vomiting Genitourinary: Reports nocturia, Denies dysuria Musculoskeletal: Reports gait dysfunction Musculoskeletal: bilateral: ankle swelling, foot swelling, absent: ankle pain, ankle stiffness, elbow pain, elbow stiffness, elbow swelling, foot pain, foot stiffness, hand pain, hand stiffness, hand swelling, hip pain, hip stiffness, hip swelling, knee pain, knee stiffness, knee swelling, shoulder pain, shoulder stiffness, shoulder swelling, wrist pain, wrist stiffness, wrist swelling Integumentary: Denies pruritus, Denies rash Neurological: Reports gait dysfunction, Reports weakness, Denies numbness Psychiatric: Denies anxiety, Denies depression Endocrine: Denies fatigue, Denies weight change Objective - Vital Signs Vital signs: Vital Signs Temp 98.4 F 07/23/19 20:00 Pulse 71 07/24/19 04:00 Resp 18 07/24/19 04:00 BP 128/80 07/24/19 04:00 Pulse Ox 95 07/24/19 04:00 Intake & Output 07/23/19 07/24/19 07/24/19 18:59 06:59 18:59 Intake Total 222 72.457 98.4 Output Total 400 650 Balance -178 -577.543 98.4 Weight 70.76 kg 58.287 kg Intake: Intake, IV Titration 72.457 98.4 Amount Heparin Sod,Pork in 0.45% 72.457 98.4 NaCl 25,000 unit In 0.45 % NaCl 1 250ml.bag @ 18 UNITS/KG/HR 12.737 mls/hr IV .[id number] [facility] Rx#: [id number] Oral 222 Output: Urine 400 650 Other: Voiding Method Urinal # Voids 1 - Exam - Constitutional General appearance: average body habitus, no distress - EENT Eyes: anicteric sclerae, EOMI, PERRLA, no ptosis, no scleral icterus, normal appearance ENT: hearing grossly normal, NA/AT, normal oropharynx, no thrush Ears: bilateral: normal - Neck Neck: no lymphadenopathy, normal ROM, no rigidity, no stridor, no thyromegaly Carotids: bilateral: upstroke delayed Thyroid: bilateral: normal size - Respiratory Respiratory: bilateral: diminished, negative: dullness, rales, rhonchi, wheezing, prolonged expiration - Cardiovascular Rhythm: regular Heart sounds: normal: S1, S2 Abnormal Heart Sounds: systolic murmur, no rub, no S3 Gallop, no click - Gastrointestinal General gastrointestinal: no distended, soft, no splenomegaly, no tenderness, no umbilical hernia, no ventral hernia - Integumentary Integumentary: normal, normal turgor - Neurologic Neurologic: CNII-XII intact - Musculoskeletal Musculoskeletal: no gait normal, generalized weakness, strength equal bilaterally - Psychiatric Psychiatric: A&O x's 3, appropriate affect, intact judgment & insight - Labs CBC & Chem 7: 07/25/19 06:04 07/25/19 06:04 Labs: Abnormal Lab Results - Last 24 Hours (Table) 07/23/19 07/23/19 07/23/19 Range/Units 09:25 09:25 09:25 APTT (22.0-30.0) sec D-Dimer 7.80 H (<0.60) mg/L FEU Chloride 97 L (98-107) mmol/L BUN 34 H (9-20) mg/dL Creatinine 1.39 H (0.66-1.25) mg/dL Glucose 185 H (74-99) mg/dL POC Glucose (mg/dL) (75-99) mg/dL AST 94 H (17-59) U/L Troponin I 0.055 H* (0.000-0.034) ng/mL Triglycerides (<150) mg/dL HDL Cholesterol (40-60) mg/dL 07/23/19 07/23/19 07/23/19 Range/Units 09:25 15:10 18:54 APTT 42.9 H (22.0-30.0) sec D-Dimer (<0.60) mg/L FEU Chloride (98-107) mmol/L BUN (9-20) mg/dL Creatinine (0.66-1.25) mg/dL Glucose (74-99) mg/dL POC Glucose (mg/dL) (75-99) mg/dL AST (17-59) U/L Troponin I 0.054 H* (0.000-0.034) ng/mL Triglycerides 189 H (<150) mg/dL HDL Cholesterol 37 L (40-60) mg/dL 07/23/19 07/23/19 07/24/19 Range/Units 21:02 21:11 01:33 APTT 49.6 H (22.0-30.0) sec D-Dimer (<0.60) mg/L FEU Chloride (98-107) mmol/L BUN (9-20) mg/dL Creatinine (0.66-1.25) mg/dL Glucose (74-99) mg/dL POC Glucose (mg/dL) 184 H (75-99) mg/dL AST (17-59) U/L Troponin I 0.041 H* (0.000-0.034) ng/mL Triglycerides (<150) mg/dL HDL Cholesterol (40-60) mg/dL 07/24/19 07/24/19 07/24/19 Range/Units 05:41 05:41 06:27 APTT 48.5 H (22.0-30.0) sec D-Dimer (<0.60) mg/L FEU Chloride (98-107) mmol/L BUN 24 H (9-20) mg/dL Creatinine (0.66-1.25) mg/dL Glucose 145 H (74-99) mg/dL POC Glucose (mg/dL) 149 H (75-99) mg/dL AST (17-59) U/L Troponin I (0.000-0.034) ng/mL Triglycerides (<150) mg/dL HDL Cholesterol (40-60) mg/dL Assessment and Plan Plan: 1. Non-ST elevation [place]. Start the patient on heparin drip, aspirin 81 mg once every day, continue patient on atenolol 25 mg orally twice every day, Lipitor 10 mg orally once every day, cardiac enzy3 every 8 hours, echocardiogram, cardiol ogy consultation . 2. Bilateral lower extremity edema. Continue heparin drip for now venous Doppl er of both lower extremities. 3. Acute systolic heart failure. Continue patient on Lasix 40 mg IV push every 12 hours, potassium supplement, patient is ALLERGIC to lisinopril, continue atenolol 25 mg orally twice every day, low-salt diet, echocardiogram, input and output and daily weight. 4. Chronic respiratory failure due to COPD/alpha-1 antitrypsin deficiency. We will maintain the patient on oxygen 2 L nasal cannula, DuoNeb 3 mL nebulization 4 times every day, incentive spirometer, Symbicort 160/4.5 g 2 puffs inhalations twice every day. 5. Hypertension and hypertensive cardiovascular disease. Continue atenolol 25 mg orally twice every day. 6. Hyperlipidemia. Continue patient on Lipitor 10 mg orally daily. 7. Diabetes mellitus type 2. Continue patient on Janumet 50/500 one tablet orally twice every day, blood glucose level before each meal and bedtime. 8. Enlarged prostate. Continue Flomax 0.4 g orally once every day. 9. History of nephrolithiasis. Stable. 9. DVT prophylaxis. Currently on heparin drip. 10. GI prophylaxis. Protonix 40 mg orally once every day. Code status: no code Impression and plan of care have been directed as dictated by the signing physician. Jennifer Meeks nurse practitioner acting as scribe for signing physician.
--- NOTE | 2019-07-25 15:54 | P.PN ---
Subjective Progress Note Date: 07/25/19 This is 78 her old male one of Dr. Ledesma with a previous medical history significant for chronic respiratory failure due to COPD as well as alpha 1 and Tetracyn deficiency currently on replacement therapy in the form of Zemeira has been following with Dr. Abdul and regular basis and he was cleared prior to the surgical intervention, hypertension and hypertensive cardiovascular disease, hyperlipidemia, diabetes mellitus type 2, nephrolithiasis, patient underwent left incarcerated inguinal hernia without any complications about 3 weeks ago and patient was discharged home. Patient has been feeling a bit weaker over the last few days with increased swelling in both lower extremities an increased pain in the left leg and weakness in both lower extremities and he has been sitting around not doing much last night developed to have a left-sided chest pain associated with significant shortness breath he has been using his oxygen more often he ended up coming to the emergency department at [facility] for evaluation his troponin was slightly elevated his EKG showed normal sinus rhythm without ischemic changes, it does show any underlying right bundle branch block. 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 Abdul. 07/24: Due to ALLERGY to lisinopril, losartan will be started 25 mg daily, patient denies any pain in his lower extremities. Edema is decreased. He is still on a heparin drip. Lasix is at 40 mg IV every 12 hours. CODE STATUS discussed with the patient and he would like to be no CODE STATUS which will be changed in the computer. 07/25: Patient will be started on eliquis today and heparin drip will be discontinued. He is continued on Lasix 40 mg IV every 12 hours with plan to decrease by tomorrow. Creatinine 1.1. Patient is anticipating that he will go home at the time of discharge. Anticipate he will be here another 24-48 hours. Review of Systems Constitutional: Reports anorexia, Reports weakness, Reports weight gain, Denies chronic headaches, Denies chronic pain, Denies lethargy, Denies malaise, Denies weight loss Eyes: denies blurred vision, denies bulging eye, denies decreased vision Ears, nose, mouth and throat: Denies dysphagia, Denies neck lump, Denies swelling in throat, Denies sore throat Cardiovascular: Reports chest pain, Reports decreased exercise tolerance, Reports dyspnea on exertion, Reports edema, Reports shortness of breath, Denies lightheadedness, Denies rapid heart beat, Denies syncope Respiratory: Reports home oxygen, Denies congestion, Denies cough, Denies cough with sputum, Denies respiratory infections, Denies sleep apnea, Denies snoring, Denies wheezing Gastrointestinal: Denies abdominal pain, Denies bloating, Denies BRBPR, Denies excessive gas, Denies loss of appetite, Denies melena, Denies nausea, Denies vomiting Genitourinary: Reports nocturia, Denies dysuria Musculoskeletal: Reports gait dysfunction Integumentary: Denies pruritus, Denies rash Neurological: Reports gait dysfunction, Reports weakness, Denies numbness Psychiatric: Denies anxiety, Denies depression Endocrine: Denies fatigue, Denies weight change Objective - Vital Signs Vital signs: Vital Signs Temp 98.0 F 07/25/19 08:00 Pulse 78 07/25/19 08:41 Resp 18 07/25/19 08:00 BP 107/70 07/25/19 08:00 Pulse Ox 95 07/25/19 08:28 Intake & Output 07/24/19 07/25/19 07/25/19 18:59 06:59 18:59 Intake Total 433.663 Output Total 650 Balance -216.337 Weight 69.8 kg Intake: Intake, IV Titration 193.663 Amount Heparin Sod,Pork in 0.45% 193.663 NaCl 25,000 unit In 0.45 % NaCl 1 250ml.bag @ 18 UNITS/KG/HR 12.737 mls/hr IV .[id number] [facility] Rx#: [id number] Oral 240 Output: Urine 650 Other: Voiding Method Urinal Urinal Urinal # Voids 1 1 # Bowel Movements 1 - Exam - Constitutional General appearance: average body habitus, no acute distress - EENT Eyes: anicteric sclerae, EOMI, PERRLA, no ptosis, no scleral icterus, normal appearance ENT: hearing grossly normal, NA/AT, normal oropharynx, no thrush Ears: bilateral: normal - Neck Neck: no lymphadenopathy, normal ROM, no rigidity, no stridor, no thyromegaly Carotids: bilateral: upstroke delayed Thyroid: bilateral: normal size - Respiratory Respiratory: bilateral: diminished, negative: dullness, rales, rhonchi, wheezing, prolonged expiration - Cardiovascular Rhythm: regular Heart sounds: normal: S1, S2 Abnormal Heart Sounds: systolic murmur, no rub, no S3 Gallop, no click - Gastrointestinal General gastrointestinal: no distended, soft, no splenomegaly, no tenderness, no umbilical hernia, no ventral hernia - Integumentary Integumentary: normal, normal turgor - Neurologic Neurologic: CNII-XII intact - Musculoskeletal Musculoskeletal: no gait normal, generalized weakness, strength equal bilaterally - Psychiatric Psychiatric: A&O x's 3, appropriate affect, intact judgment & insight - Labs CBC & Chem 7: 07/25/19 06:04 07/25/19 06:04 Labs: Abnormal Lab Results - Last 24 Hours (Table) 07/24/19 07/24/19 07/24/19 Range/Units 12:16 16:33 20:28 APTT (22.0-30.0) sec Carbon Dioxide (22-30) mmol/L BUN (9-20) mg/dL Glucose (74-99) mg/dL POC Glucose (mg/dL) 196 H 188 H 188 H (75-99) mg/dL 07/25/19 07/25/19 07/25/19 Range/Units 06:04 06:04 06:11 APTT 55.2 H (22.0-30.0) sec Carbon Dioxide 32 H (22-30) mmol/L BUN 23 H (9-20) mg/dL Glucose 158 H (74-99) mg/dL POC Glucose (mg/dL) 163 H (75-99) mg/dL Assessment and Plan Plan: 1. Non-ST elevation ME. Start the patient on heparin drip, aspirin 81 mg once every day, continue patient on atenolol 25 mg orally twice every day, Lipitor 10 mg orally once every day, echocardiogram, cardiology consultation . 2. Bilateral lower extremity edema with left lower extremity DVT. Heparin drip will be transitioned to eliquis 3. Acute systolic heart failure. Continue patient on Lasix 40 mg IV push every 12 hours, potassium supplement, patient is ALLERGIC to lisinopril, continue atenolol 25 mg orally twice every day, low-salt diet, echocardiogram, input and output and daily weight. 4. Chronic respiratory failure due to COPD/alpha-1 antitrypsin deficiency. We will maintain the patient on oxygen 2 L nasal cannula, DuoNeb 3 mL nebulization 4 times every day, incentive spirometer, Symbicort 160/4.5 g 2 puffs inhalations twice every day. 5. Hypertension and hypertensive cardiovascular disease. Continue atenolol 25 mg orally twice every day. 6. Hyperlipidemia. Continue patient on Lipitor 10 mg orally daily. 7. Diabetes mellitus type 2. Continue patient on Janumet 50/500 one tablet orally twice every day, blood glucose level before each meal and bedtime. 8. Enlarged prostate. Continue Flomax 0.4 g orally once every day. 9. History of nephrolithiasis. Stable. 9. DVT prophylaxis. Currently on heparin drip. 10. GI prophylaxis. Protonix 40 mg orally once every day. Code status: no code Discharge plan home in the next 24-48 hours. Impression and plan of care have been directed as dictated by the signing physician. Jennifer Meeks nurse practitioner acting as scribe for signing madai sheth.
[2019-07-25 17:11] LABS: Glucose,Whole Blood 221 mg/dL (75-99)
[2019-07-25] MEDS: ATORVASTATIN 10 MG TAB PO SCH (20:31)
[2019-07-25 20:47] LABS: Glucose,Whole Blood 226 mg/dL (75-99)
[2019-07-25] MEDS: LINAGLIPTIN 5 MG TABLET PO SCH (22:19)
[2019-07-26 06:17] LABS: Glucose,Whole Blood 144 mg/dL (75-99)
[2019-07-26] MEDS: INSULIN ASPART (NovoLOG) 100 UNIT/ML VIAL SQ SCH ×4 (06:38→23:31)
[2019-07-26] MEDS: SYMBICORT 160-4.5 MCG INHALER INHALATION SCH ×2 (08:00→19:07)
[2019-07-26] MEDS: IPRATROPIUM-ALBUTEROL 3 ML NEB INHALATION SCH ×4 (08:00→18:57)
[2019-07-26] MEDS: TAMSULOSIN 0.4 MG CAP.ER.24H PO SCH ×2 (09:56→21:39)
[2019-07-26] MEDS: SPIRONOLACTONE 25 MG TAB PO SCH (09:56)
[2019-07-26] MEDS: LOSARTAN 25 MG TAB PO SCH (09:56)
[2019-07-26] MEDS: FUROSEMIDE 10 MG/ML 4 ML VIAL IV SCH (09:57)
[2019-07-26] MEDS: MULTIVITAMINS, THERA 1 EACH TAB PO SCH (09:57)
[2019-07-26] MEDS: ASPIRIN 81 MG PO SCH (09:57)
[2019-07-26] MEDS: ATENOLOL 25 MG TAB PO SCH ×2 (09:57→21:39)
[2019-07-26] MEDS: POTASSIUM CHLORIDE ER 10 MEQ TAB.ER.PRT PO SCH ×2 (09:57→21:39)
[2019-07-26] MEDS: APIXABAN 5 MG TAB PO SCH ×2 (09:57→21:39)
[2019-07-26] MEDS: cloNIDine HCL 0.1 MG TAB PO SCH ×2 (09:57→21:39)
[2019-07-26] MEDS: CALCIUM CARB-VIT D 500MG-200UN 1 EACH TAB PO SCH (10:03)
--- NOTE | 2019-07-26 10:32 | P.PN ---
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 Abdul and regular basis and he was cleared prior to the surgical intervention, hypertension and hypertensive cardiovascular disease, hyperlipidemia, diabetes mellitus type 2, nephrolithiasis, patient underwent left incarcerated inguinal hernia without any complications about 3 weeks ago and patient was discharged home. Patient has been feeling a bit weaker over the last few days with increased swelling in both lower extremities an increased pain in the left leg and weakness in both lower extremities and he has been sitting around not doing much last night developed to have a left-sided chest pain associated with significant shortness breath he has been using his oxygen more often he ended up coming to the emergency department at [facility] for evaluation his troponin was slightly elevated his EKG showed normal sinus rhythm without ischemic changes, it does show any underlying right bundle branch block. 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 Abdul. 07/24: Due to ALLERGY to lisinopril, losartan will be started 25 mg daily, patient denies any pain in his lower extremities. Edema is decreased. He is still on a heparin drip. Lasix is at 40 mg IV every 12 hours. CODE STATUS discussed with the patient and he would like to be no CODE STATUS which will be changed in the computer. 07/25: Patient will be started on eliquis today and heparin drip will be discontinued. He is continued on Lasix 40 mg IV every 12 hours with plan to decrease by tomorrow. Creatinine 1.1. Patient is anticipating that he will go home at the time of discharge. Anticipate he will be here another 24-48 hours. 07/26: Patient is found sitting up in a chair and appears to be in no acute distress. Patient states he is feeling tired. He denies any pain in his leg. He denies any shortness of breath. He is on Lasix 40 mg IV every 12 hours which will be transitioned to oral 40 mg twice daily which will be continued at the time of discharge. Patient's initial prescription for eliquis has been sent to [facility] pharmacy which is not open today and discharge will be held until tomorrow. Review of Systems Constitutional: Reports anorexia, Reports weakness, Reports weight gain, Denies chronic headaches, Denies chronic pain, Denies lethargy, Denies malaise, Denies weight loss Eyes: denies blurred vision, denies bulging eye, denies decreased vision Ears, nose, mouth and throat: Denies dysphagia, Denies neck lump, Denies swelling in throat, Denies sore throat Cardiovascular: Denies chest pain, denies decreased exercise tolerance, denies edema, denies shortness of breath, Denies lightheadedness, Denies rapid heart beat, Denies syncope Respiratory: Reports home oxygen, Denies congestion, Denies cough, Denies cough with sputum, Denies respiratory infections, Denies sleep apnea, Denies snoring, Denies wheezing Gastrointestinal: Denies abdominal pain, Denies bloating, Denies BRBPR, Denies excessive gas, Denies loss of appetite, Denies melena, Denies nausea, Denies vomiting Genitourinary: Reports nocturia, Denies dysuria Musculoskeletal: Reports gait dysfunction Integumentary: Denies pruritus, Denies rash Neurological: Reports gait dysfunction, Reports weakness, Denies numbness Psychiatric: Denies anxiety, Denies depression Endocrine: Denies fatigue, Denies weight change Objective - Vital Signs Vital signs: Vital Signs Temp 97.6 F 07/26/19 08:00 Pulse 88 07/26/19 08:14 Resp 18 07/26/19 08:00 BP 124/79 07/26/19 08:00 Pulse Ox 93 L 07/26/19 08:00 Intake & Output 07/25/19 07/26/19 07/26/19 18:59 06:59 18:59 Intake Total 720 360 Output Total 300 450 Balance 420 -450 360 Weight 69.9 kg Intake: Oral 720 360 Output: Urine 300 450 Other: Voiding Method Urinal Urinal Urinal # Voids 1 - Exam - Constitutional General appearance: average body habitus, no acute distress, patient sitting in chair - EENT Eyes: anicteric sclerae, EOMI, PERRLA, no ptosis, no scleral icterus, normal appearance ENT: hearing grossly normal, NA/AT, normal oropharynx, no thrush Ears: bilateral: normal - Neck Neck: no lymphadenopathy, normal ROM, no rigidity, no stridor, no thyromegaly Carotids: bilateral: upstroke delayed Thyroid: bilateral: normal size - Respiratory Respiratory: bilateral: diminished, negative: dullness, rales, rhonchi, wheezing, prolonged expiration - Cardiovascular Rhythm: regular Heart sounds: normal: S1, S2 Abnormal Heart Sounds: systolic murmur, no rub, no S3 Gallop, no click - Gastrointestinal General gastrointestinal: no distended, soft, no splenomegaly, no tenderness, no umbilical hernia, no ventral hernia - Integumentary Integumentary: normal, normal turgor - Neurologic Neurologic: CNII-XII intact - Musculoskeletal Musculoskeletal: no gait normal, generalized weakness, strength equal bilaterally - Psychiatric Psychiatric: A&O x's 3, appropriate affect, intact judgment & insight - Labs CBC & Chem 7: 07/25/19 06:04 07/25/19 06:04 Labs: Abnormal Lab Results - Last 24 Hours (Table) 07/25/19 07/25/19 07/25/19 Range/Units 11:47 16:55 20:45 POC Glucose (mg/dL) 168 H 221 H 226 H (75-99) mg/dL 07/26/19 Range/Units 06:16 POC Glucose (mg/dL) 144 H (75-99) mg/dL Assessment and Plan Plan: 1. Non-ST elevation UT ruled out by cardiology. Continue atenolol 25 mg orally twice every day, Lipitor 10 mg orally once every day, echocardiogram, cardiology consultation . 2. Bilateral lower extremity edema with left lower extremity DVT. Continue eliquis 3. Acute systolic heart failure. Continue patient on Lasix 40 mg IV push every 12 hours and transition to Lasix 40 mg oral twice daily, potassium supplement, patient is ALLERGIC to lisinopril, continue atenolol 25 mg orally twice every day, low-salt diet, echocardiogram, input and output and daily weight. 4. Chronic respiratory failure due to COPD/alpha-1 antitrypsin deficiency. We will maintain the patient on oxygen 2 L nasal cannula, DuoNeb 3 mL nebulization 4 times every day, incentive spirometer, Symbicort 160/4.5 g 2 puffs inhalations twice every day. 5. Hypertension and hypertensive cardiovascular disease. Continue atenolol 25 mg orally twice every day. 6. Hyperlipidemia. Continue patient on Lipitor 10 mg orally daily. 7. Diabetes mellitus type 2. Continue patient on Janumet 50/500 one tablet orally twice every day, blood glucose level before each meal and bedtime. 8. Enlarged prostate. Continue Flomax 0.4 g orally once every day. 9. History of nephrolithiasis. Stable. 9. DVT prophylaxis. Currently on heparin drip. 10. GI prophylaxis. Protonix 40 mg orally once every day. Code status: no code Discharge plan home in the morning Impression and plan of care have been directed as dictated by the signing physician. Jenniefr Meeks nurse practitioner acting as scribe for signing physician. <Naye Espinosa - Last Filed: 08/10/19 12:32> Objective - Vital Signs Vital signs: Vital Signs Temp 98 F 07/26/19 20:00 Pulse 77 07/27/19 08:15 Resp 18 07/27/19 08:15 BP 128/67 07/27/19 08:15 Pulse Ox 90 L 07/27/19 08:15 - Labs CBC & Chem 7: 07/25/19 06:04 07/25/19 06:04 Assessment and Plan Plan: discharge with simin, counceled regarding anticoagulation use and its complications, no nsaids rx sent to pharmacy and no interuption of treament expected, meds are waiting at pharmacy with coupon 30 day free.
--- NOTE | 2019-07-26 11:42 | P.PN ---
Subjective Progress Note Date: 07/26/19 This is a pleasant 78 year old gentleman with history of diabetes, hyperlipidemia, hypertension, no prior history of coronary artery disease, he has history of Alpha I antitrypsin deficiency, chronic hypoxic respiratory failure related to advanced [place] PVD, prior history of smoking when the patient was in his 20s. He presents to the hospital on this occasion with a fullness sensation in his mid chest area, he states it felt like he was bloated in his chest, he's been experiencing these symptoms off and on for the past 2 days, thinking it was more a gas pain. Patient states he has also noticed significant swelling in his bilateral lower extremities which has been consistently getting worse over the past one to 2 weeks. Patient is always short of breath, he states he does not feel any more short of breath than his usual. Patient also states that within the past couple of weeks he has noticed significant weakness in his bilateral legs, especially in the thighs for which she states it's hard to stand up but sometimes because he is so weak. He also states that there was 1 morning found on the floor next to his bed, he doesn't recall how he got there, it appears it may have been a syncopal episode but the patient also states that he takes Ambien for sleep. Chest x-ray was performed in the emergency room and showed cardiomegaly and interstitial changes with possibility of CHF and pulmonary vascular congestion, a focal paced V in the right midlung. His EKG showed a normal sinus rhythm with a right bundle branch block pattern and left axis deviation. Nonspecific ST-T wave changes. CTA of the chest was performed which did not reveal evidence for pulmonary embolism, there was a left lower lobe pulmonary nodule noted. A venous duplex study was performed which revealed a nearly occlusive DVT in the left popliteal vein, no evidence of DVT in the right leg. An echocardiogram with Doppler study was performed which revealed an ejection fraction of 55-60%, moderate aortic stenosis, moderate mitral regurg, moderate prolapse of the posterior mitral valve leaflet, moderate pulmonary hypertension, RVSP 57.8, no evidence of pericardial effusion. Blood pressure 128/80 with a heart rate in the 70s, 95% on 3 L of oxygen. White blood cell count 7.2, hemoglobin 15.7, platelet count 165. D-dimer 7.8. Sodium 140, potassium 4.3, BUN 34 and creatinine 1.3 on admission, 24 and 1.0 this morning. Magnesium 2.0. Troponins 0.055, 0.054, 0.041. BNP level 1510. Cholesterol 170, LDL 95, HDL 37, triglycerides 189. At the time of my examination this morning, patient states he feels exhausted, his breathing is as it usually is for him according to the patient, he does appear short of breath with talking. 03/25/2019 Patient seen and examined this morning overall feeling well, states that he feels tired, denies shortness of breath. Anticipating discharge home in the [facility] tomorrow, we are awaiting a his Eliquis. Blood pressure 124/78 with a heart rate of 80, 93% on 3 L of oxygen. Objective - Vital Signs Vital signs: Vital Signs Temp 97.6 F 07/26/19 08:00 Pulse 88 07/26/19 08:14 Resp 18 07/26/19 08:00 BP 124/79 07/26/19 08:00 Pulse Ox 93 L 07/26/19 08:00 Intake & Output 07/25/19 07/26/19 07/26/19 18:59 06:59 18:59 Intake Total 720 360 Output Total 300 450 Balance 420 -450 360 Weight 69.9 kg Intake: Oral 720 360 Output: Urine 300 450 Other: Voiding Method Urinal Urinal Urinal # Voids 1 - Exam HEAD: Normocephalic/atraumatic. EYES: Normal reaction of pupils, equal size. Conjunctiva pink, sclera white. NOSE: Clear with pink turbinates. THROAT: No erythema or exudates. NECK: No masses, elevated JVP, no thyroid enlargement, no adenopathy. CHEST: No chest wall deformity. Symmetrical expansion. LUNGS: Equal air entry with a few scattered crackles, no wheeze, rhonchi or dullness. Initially air entry to the bases CVS: Regular rate and rhythm, normal S1 and S2, no gallops, no rubs, systolic murmur ABDOMEN: Soft, nontender. No hepatosplenomegaly, normal bowel sounds, no gu arding or rigidity. EXTREMITIES: No clubbing, chronic lower extremity edema 1+, and changes of chr onic venous stasis present to bilateral lower extremities, no cyanosis, 2+ pulses and upper and lower extremities. MUSCULOSKELETAL: Muscle strength and tone normal. SPINE: No scoliosis or deformity SKIN: No rashes CENTRAL NERVOUS SYSTEM: Alert and oriented -3. No focal deficits, tone is normal in all 4 extremities. PSYCHIATRIC: Alert and oriented -3. Appropriate affect. Intact judgment and insight. - Labs CBC & Chem 7: 07/25/19 06:04 07/25/19 06:04 Labs: Abnormal Lab Results - Last 24 Hours (Table) 07/25/19 07/25/19 07/25/19 Range/Units 11:47 16:55 20:45 POC Glucose (mg/dL) 168 H 221 H 226 H (75-99) mg/dL 07/26/19 Range/Units 06:16 POC Glucose (mg/dL) 144 H (75-99) mg/dL Assessment and Plan Plan: Assessment and plan: #1. Diastolic congestive heart failure acute on chronic #2. Left popliteal DVT #3. Chest pressure and fullness, some atypical features for acute coronary syndrome, troponins 0.05, 0.05, 0.04. EKG shows a normal sinus rhythm with right bundle branch block pattern and nonspecific ST-T wave changes. Echo shows normal LV function, moderate aortic stenosis, moderate mitral regurg, moderate prolapse of the posterior mitral valve leaflet, moderate pulmonary hypertension. #4. Left lower lobe pulmonary nodule measuring 1 cm possibly related to scarring, will be followed on outpatient basis #5. History of severe COPD, known history of alpha-1 antitrypsin deficiency on Zemaira infusions #6. Recent history of left inguinal hernia repair in June 2019 #7. Acute kidney injury #8. Chronic edema #9. Diabetes mellitus #10. Hypertension #11. Hyperlipidemia #12. 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 We'll make him a follow-up appointment in the office post discharge. DNP note has been reviewed, I agree with a documented findings and plan of care. Patient was seen and examined.
[2019-07-26] MEDS: FUROSEMIDE 40 MG TAB PO SCH (16:52)
[2019-07-26 17:15] LABS: Glucose,Whole Blood 170 mg/dL (75-99)
[2019-07-26] MEDS: LINAGLIPTIN 5 MG TABLET PO SCH (21:39)
[2019-07-26] MEDS: MELATONIN 5 MG TABLET PO SCH (21:40)
[2019-07-26] MEDS: ZOLPIDEM 10 MG TAB PO SCH (21:40)
[2019-07-26 23:20] LABS: Glucose,Whole Blood 244 mg/dL (75-99)
[2019-07-26 23:50] VITALS: TEMP 98
[2019-07-27] MEDS: INSULIN ASPART (NovoLOG) 100 UNIT/ML VIAL SQ SCH (06:37)
[2019-07-27 06:38] LABS: Glucose,Whole Blood 131 mg/dL (75-99)
[2019-07-27] MEDS: IPRATROPIUM-ALBUTEROL 3 ML NEB INHALATION SCH (07:51)
[2019-07-27] MEDS: SYMBICORT 160-4.5 MCG INHALER INHALATION SCH (07:52)
--- NOTE | 2019-07-27 08:36 | P.DS ---
Providers Date of admission: 07/23/19 13:11 Expected date of discharge: 07/27/19 Attending physician: Damon Diggs Consults: 07/23/19 13:11 Consult Physician Urgent Consulting Provider: Rio Rosenberg Consult Reason/Comments: elevated troponin Do you want consulting provider notified?: Yes 07/23/19 13:56 Consult Physician Routine Consulting Provider: Reed Rock Consult Reason/Comments: DVT, Basha's pt, alpha antitrypsin Do you want consulting provider notified?: Yes Primary care physician: [facility] Course: This is 78 her old male one of Dr. Ledesma with a previous medical history significant for chronic respiratory failure due to COPD as well as alpha 1 and Tetracyn deficiency currently on replacement therapy in the form of Zemeira has been following with Dr. Abdul and regular basis and he was cleared prior to the surgical intervention, hypertension and hypertensive cardiovascular disease, hyperlipidemia, diabetes mellitus type 2, nephrolithiasis, patient underwent left incarcerated inguinal hernia without any complications about 3 weeks ago and patient was discharged home. Patient has been feeling a bit weaker over the last few days with increased swelling in both lower extremities an increased pain in the left leg and weakness in both lower extremities and he has been sitting around not doing much last night developed to have a left-sided chest pain associated with significant shortness breath he has been using his oxygen more often he ended up coming to the emergency department at [facility] for evaluation his troponin was slightly elevated his EKG showed normal sinus rhythm without ischemic changes, it does show any underlying right bundle branch block. 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 Abdul. 07/24: Due to ALLERGY to lisinopril, losartan will be started 25 mg daily, patient denies any pain in his lower extremities. Edema is decreased. He is still on a heparin drip. Lasix is at 40 mg IV every 12 hours. CODE STATUS discussed with the patient and he would like to be no CODE STATUS which will be changed in the computer. 07/25: Patient will be started on eliquis today and heparin drip will be discontinued. He is continued on Lasix 40 mg IV every 12 hours with plan to decrease by tomorrow. Creatinine 1.1. Patient is anticipating that he will go home at the time of discharge. Anticipate he will be here another 24-48 hours. 07/26: Patient is found sitting up in a chair and appears to be in no acute distress. Patient states he is feeling tired. He denies any pain in his leg. He denies any shortness of breath. He is on Lasix 40 mg IV every 12 hours which will be transitioned to oral 40 mg twice daily which will be continued at the time of discharge. Patient's initial prescription for eliquis has been sent to [facility] pharmacy which is not open today and discharge will be held until tomorrow. 07/27: Patient has been afebrile, heart rate 80, blood pressure 97/52, pulse ox 93% on room air. Patient had no events overnight. Cardiology has cleared him for discharge. Patient will be discharged home today in stable condition. Discharge diagnoses: 1. Non-ST elevation AK ruled out by cardiology. 2. Bilateral lower extremity edema with left lower extremity DVT. 3. Acute systolic heart failure. 4. Chronic respiratory failure due to COPD/alpha-1 antitrypsin deficiency. 5. Hypertension and hypertensive cardiovascular disease. 6. Hyperlipidemia. 7. Diabetes mellitus type 2. 8. Enlarged prostate. 9. History of nephrolithiasis. Stable. Discharge plan: home Impression and plan of care have been directed as dictated by the signing physician. Jennifer Meeks nurse practitioner acting as scribe for signing physician. Patient Condition at Discharge: Good Plan - Discharge Summary Discharge Rx Participant: No New Discharge Prescriptions: New Apixaban [Eliquis Starter Pack (for VTE)] 0 mg PO DIRECTED 30 Days #1 pack Losartan [Cozaar] 25 mg PO DAILY #30 tab Continue Zolpidem [Ambien] 10 mg PO HS Multivitamins, Thera [Multivitamin (formulary)] 1 tab PO DAILY Tamsulosin [Flomax] 0.4 mg PO BID Atorvastatin [Lipitor] 10 mg PO Q48H sitaGLIPtin PHOS/metFORMIN HCL [Janumet 50-500 mg Tablet] 1 tab PO BID cloNIDine HCL [Catapres] 0.3 mg PO BID Budesonide/Formoterol Fumarate [Symbicort 160-4.5 Mcg Inhaler] 2 puff INHALATION RT-BID Albuterol Sulfate [Proair Hfa] 1 - 2 puff INHALATION RT-Q6H PRN PRN Reason: Shortness Of Breath Ubidecarenone [Co Q-10] 100 mg PO DAILY Potassium Chloride [Klor-Con 10] 10 meq PO BID Pilocarpine HCl 5 mg PO TID PRN PRN Reason: Dry Mouth [place]-3 Fatty Acids/Fish Oil [Fish Oil 1,000 mg Softgel] 1 cap PO DAILY Melatonin 5 mg PO HS Calcium Carbonate/Vitamin D3 [Calcium 600-Vit D3 400 Caplet] 1 tab PO DAILY Atenolol 25 mg PO BID Zemaira 1 applic IV Spironolactone 25 mg PO DAILY Changed Furosemide [Lasix] 40 mg PO BID #0 Discharge Medication List Albuterol Sulfate [Proair Hfa] 1 - 2 puff INHALATION RT-Q6H PRN 05/05/19 [ History] Atenolol 25 mg PO BID 05/05/19 [History] Atorvastatin [Lipitor] 10 mg PO Q48H 05/05/19 [History] Budesonide/Formoterol Fumarate [Symbicort 160-4.5 Mcg Inhaler] 2 puff INHALATION RT-BID 05/05/19 [History] Calcium Carbonate/Vitamin D3 [Calcium 600-Vit D3 400 Caplet] 1 tab PO DAILY 05/05/19 [History] Melatonin 5 mg PO HS 05/05/19 [History] Multivitamins, Thera [Multivitamin (formulary)] 1 tab PO DAILY 05/05/19 [History] Garnavillo-3 Fatty Acids/Fish Oil [Fish Oil 1,000 mg Softgel] 1 cap PO DAILY 05/05/19 [History] Pilocarpine HCl 5 mg PO TID PRN 05/05/19 [History] Potassium Chloride [Klor-Con 10] 10 meq PO BID 05/05/19 [History] Tamsulosin [Flomax] 0.4 mg PO BID 05/05/19 [History] Ubidecarenone [Co Q-10] 100 mg PO DAILY 05/05/19 [History] Zemaira 1 applic IV 05/05/19 [History] Zolpidem [Ambien] 10 mg PO HS 05/05/19 [History] cloNIDine HCL [Catapres] 0.3 mg PO BID 05/05/19 [History] sitaGLIPtin PHOS/metFORMIN HCL [Janumet 50-500 mg Tablet] 1 tab PO BID 05/05/19 [History] Spironolactone 25 mg PO DAILY 05/25/19 [History] Apixaban [Eliquis Starter Pack (for VTE)] 0 mg PO DIRECTED 30 Days #1 pack 07/24/19 [Rx] Furosemide [Lasix] 40 mg PO BID #0 07/26/19 [Rx] Losartan [Cozaar] 25 mg PO DAILY #30 tab 07/26/19 [Rx] Follow up Appointment(s)/Referral(s): Jagdish Gray MD [STAFF PHYSICIAN] - 07/30/19 8:45 am () Juancarlos Ledesma MD [Primary Care Provider] - 07/31/19 11:45 am (With Lilian PEDRAZA) Anurag Abdul DO [Doctor of Osteopathic Medicine] - 08/18/19 3:15 pm (With Lashanda Fried NP.) Patient Instructions/Handouts: Deep Vein Thrombosis (DC), Safe Use of Anticoagulants (DC) Activity/Diet/Wound Care/Special Instructions: pts Eliquis starter pack is filled in [facility] pharmacy for free. pts 30 day supply would be $27 for his future prescription needs.
[2019-07-27] MEDS: APIXABAN 5 MG TAB PO SCH (10:24)
[2019-07-27] MEDS: CALCIUM CARB-VIT D 500MG-200UN 1 EACH TAB PO SCH (10:25)
[2019-07-27] MEDS: ATENOLOL 25 MG TAB PO SCH (10:25)
[2019-07-27] MEDS: TAMSULOSIN 0.4 MG CAP.ER.24H PO SCH (10:25)
[2019-07-27] MEDS: ASPIRIN 81 MG PO SCH (10:25)
[2019-07-27] MEDS: MULTIVITAMINS, THERA 1 EACH TAB PO SCH (10:25)
[2019-07-27] MEDS: LOSARTAN 25 MG TAB PO SCH (10:25)
[2019-07-27] MEDS: cloNIDine HCL 0.1 MG TAB PO SCH (10:25)
[2019-07-27] MEDS: POTASSIUM CHLORIDE ER 10 MEQ TAB.ER.PRT PO SCH (10:25)
[2019-07-27] MEDS: FUROSEMIDE 40 MG TAB PO SCH (10:25)
[2019-07-27] MEDS: SPIRONOLACTONE 25 MG TAB PO SCH (10:25)
[2019-07-27 10:40] VITALS: BP 128/67; PULSE 77; RESP 18
--- NOTE | 2019-07-30 17:35 | CDI ---
Date: 07/30/2019 From: CLARIBEL Kidd, Dione Joe, Agricultural Economist Phone: If you have any questions about this query, please contact Dione Joe, Agricultural Economist, at [phone] between 8 am and 5 pm. Admit date: 07/23/2019 Patient Name: Papito Billy Visit Number: [id number] Discharge Date: 07/27/2019 The Clinical Documentation Specialists (CD) and [facility] Coding Staff appreciate your assistance in clarifying documentation. Please respond to the clarification below the line at the bottom and electronically sign. The Coding Staff will review the response and follow-up if needed. Pleae note: Queries are made a permanent part of the Legal Health Record. If you have any questions, please contact the author of this message via ITS. There is conflicting documentation regarding the congestive heart failure. H&P states acute systolic heart failure. Progress notes 07/24, 07/25, 07/26 state diastolic heart failure. History/Risk Factors: HTN, DM, DVT. COPD, chronic respiratory failure. Clinical Indicators: Pressure-like chest discomfort. BNP:[id number] Echocardiogram Results: Overall left ventricular systolic function is normal with EF between 55-60% Moderate pulmonary hypertension. Chest X Ray: Cardiomegaly and interstitial changes with pulmonary congestion. Treatment: Lasix IV 40 mg IV push q12hr In your professional opinion, can you please clarify the acuity and type of CHF if known? Systolic Heart Failure: Acute Chronic Acute on Chronic Diastolic Heart Failure: Acute Chronic Acute on Chronic Systolic & Diastolic Heart Failure: Acute Chronic Acute on Chronic Heart Failure Unable to Determine Other, please specify (Last Revision: December 2017) Acute diastolic heart failure MTDD
== END 2019-07-27 10:39 | disposition home health service (06) | DRG 291 ==
LOC: EC 09:11 → 3SCARD 13:11
PROVIDERS: ADMIT Internal Medicine; ATTEND Internal Medicine
DX: I11.0 Hypertensive heart disease with heart failure (principal); I50.31 Acute diastolic (congestive) heart failure; I82.432 Acute embolism and thrombosis of left popliteal vein; J96.11 Chronic respiratory failure with hypoxia; N17.9 Acute kidney failure, unspecified; Z16.24 Resistance to multiple antibiotics; E11.9 Type 2 diabetes mellitus without complications; E88.01 Alpha-1-antitrypsin deficiency; G14 Postpolio syndrome; I08.3 Combined rheumatic disorders of mitral, aortic and tricuspid valves; I27.20 Pulmonary hypertension, unspecified; I45.10 Unspecified right bundle-branch block; J44.9 Chronic obstructive pulmonary disease, unspecified; N40.0 Benign prostatic hyperplasia without lower urinary tract symptoms; Z79.51 Long term (current) use of inhaled steroids; Z79.899 Other long term (current) drug therapy; Z80.1 Family history of malignant neoplasm of trachea, bronchus and lung; Z86.718 Personal history of other venous thrombosis and embolism; Z87.442 Personal history of urinary calculi; Z87.891 Personal history of nicotine dependence; Z88.8 Allergy status to other drugs, medicaments and biological substances; Z98.42 Cataract extraction status, left eye; Z98.41 Cataract extraction status, right eye
CPT/HCPCS: 36415; 71045; 71046; 71275; 80048; 80053; 80061; 83735; 83880; 84484; 85025; 85027; 85379; 85610; 85730; 93005; 93306; 93970; 94640; 94760; 96365; 96376; 99285